=== PATIENT | male | born 1955 | race Caucasian/White ===

== ENCOUNTER 2019-03-10 12:13 | Outpatient (CLI) | payer BC, SELFPAY ==
--- NOTE | 2019-03-10 12:15 | DI.RAD_ITS ---
EXAM: XR HIP RT COMPLETE AP PELVIS INDICATION: pain right hip M25.551. TECHNIQUE: 2D digital imaging was performed. FINDINGS: In the acetabular roof of the right hip, there is subchondral sclerosis, cysts and periarticular spur ring. In the femoral head, there is subchondral sclerosis and cyst formation. No acute fracture or dislocation is identified. The bones are normally mineralized. In the left hip, there has been progression of the subchondral sclerosis and cyst formation since the prior examination from 2016. IMPRESSION: Progressive degenerative changes in both the right and left hip since 2016. While the findings in th e right femoral head may represent degenerative disease, avascular necrosis should also be considered .
[2019-03-10 13:39] LABS: Anion Gap 6.6 mmol/L (3-11); BUN 16 mg/dL (7-18); CO2 30.4 mmol/L (21.0-32.0); CREATININE 1.18 mg/dL (0.70-1.30); Calcium 8.9 mg/dL (8.5-10.1); Calculated LDL 69 mg/dL; Chloride 103 mmol/L (98-107); Cholesterol 137 mg/dL (<200); Glucose 95 mg/dL (74-106); HDL Cholesterol 54 mg/dL (40-60); Potassium 4.7 mmol/L (3.5-5.1); Sodium 140 mmol/L (136-145); Triglyceride 74 mg/dL (<150)
== END 2019-03-10 12:33 ==
PROVIDERS: PCP Family Medicine; Visit Provider Family Medicine
DX: M25.551 Pain in right hip (principal); M16.0 Bilateral primary osteoarthritis of hip; E78.5 Hyperlipidemia, unspecified
CPT/HCPCS: 36415; 80048; 80061; 73502

== ENCOUNTER 2019-05-05 00:53 | Outpatient (CLI) | payer BC, SELFPAY ==
--- NOTE | 2019-05-05 14:10 | DI.RAD_ITS ---
EXAM: RF JOINT INJECTION FLUORO GUID CLINICAL HISTORY: RT HIP PAIN, RT HIP INJECTION,25.559 TECHNIQUE: 2D and realtime digital imaging was performed. Fluoroscopy was provided in the OR COMPARISON: No exams were available for comparison FINDINGS: Fluoroscopy was provided for Dr. Hopkins for guidance with right hip injection. Please see procedur e note for details. Fluoro time: 1.0 seconds
[2019-05-05] MEDS: Omnipaque 300 MG/ML 10 ML BTL IJ (14:25)
[2019-05-05] MEDS: Bupivacaine 0.5% Pres-Free 10 ML VIAL 6 ML IJ (14:26)
[2019-05-05] MEDS: methylPREDNISolone ACETATE 80 MG/ML VIAL IM (14:27)
--- NOTE | 2019-05-05 14:47 | W.PROCNOTE ---
Date of service: 05/05/19 Time of Service: 14:14 Procedure Note Date of procedure: 05/05/19 Procedure: Right Hip Injection with Fluoroscopic Guidance Surgeon/Proceduralist/Physician: Marcel Hopkins Procedure Diagnosis: Right Hip Osteoarthritis Procedure Indications: Shaheed has had persistent pain of the RIGHT hip and groin. Noninvasive measures have been tried. To serve as both diagnostic and therapeutic, an injection under fluoroscopy was recommended. I had discussed the risks of the procedure and the patient elected to proceed. Procedure Description: Shaheed was greeted in the flouroscopy room. The correct side was identified and the consent was reviewed with the patient and signed. The patient was then placed in the supine position on the fluoroscopy table. The RIGHT hip was then prepped with Chloraprep. The anterolateral injection starting point was identiifed by bony landmarks and fluoroscopy. The skin and soft tissue in the tract of the injection was anesthetized with 1% Lidocaine. A spinal needle was then inserted deep into the hip joint at the level of the lateral femoral neck under fluoroscopic guidance. A small amount of Omnipaque solution was injected to confirm intraarticular placement. Once confirmed, the hip was injected with 6cc of 0.5% Bupivicaine and 80mg of Depo-Medrol. A bandaid was placed on the injection site. The patient tolerated the procedure well and noted improvement in pre-injection pain.
== END 2019-05-05 01:13 ==
PROVIDERS: PCP Family Medicine; Visit Provider Student in an Organized Health Care Education/Training Program
DX: M25.551 Pain in right hip (principal); M16.11 Unilateral primary osteoarthritis, right hip
CPT/HCPCS: 20610; 77002; J1040

== ENCOUNTER 2019-11-03 01:30 | Outpatient (CLI) | payer BC, SELFPAY ==
--- NOTE | 2019-11-03 07:15 | DI.RAD_ITS ---
EXAM: RF JOINT INJECTION FLUORO GUID CLINICAL HISTORY: R HIP INJ UNDER FLUORO,PRIMARY OA RT HIP,M16.11 TECHNIQUE: COMPARISON: No exams were available for comparison FINDINGS: Fluoroscopy was utilized by Dr. Hopkins during reported right hip injection. Hard copy shows needle overlying the right hip with intra-articular injection. Fluoro time, 2 seconds. IMPRESSION:
--- NOTE | 2019-11-03 13:54 | W.PROCNOTE ---
Date of service: 11/03/19 Time of Service: 13:54 Procedure Note Date of procedure: 11/03/19 Procedure: Right Hip Injection with Fluoroscopic Guidance Surgeon/Proceduralist/Physician: Marcel Hopkins Procedure Diagnosis: Right Hip Osteoarthritis Procedure Indications: Shaheed has had persistent pain of the RIGHT hip and groin. Noninvasive measures have been tried. To serve as both diagnostic and therapeutic, an injection under fluoroscopy was recommended. I had discussed the risks of the procedure and the patient elected to proceed. Procedure Description: Shaheed was greeted in the flouroscopy room. The correct side was identified and the consent was reviewed with the patient and signed. The patient was then placed in the supine position on the fluoroscopy table. The RIGHT hip was then prepped with Chloraprep. The anterolateral injection starting point was identiifed by bony landmarks and fluoroscopy. The skin and soft tissue in the tract of the injection was anesthetized with 1% Lidocaine. A spinal needle was then inserted deep into the hip joint at the level of the lateral femoral neck under fluoroscopic guidance. A small amount of Omnipaque solution was injected to confirm intraarticular placement. Once confirmed, the hip was injected with 6cc of 0.5% Bupivicaine and 80mg of Depo-Medrol. A bandaid was placed on the injection site. The patient tolerated the procedure well and noted improvement in pre-injection pain.
[2019-11-03] MEDS: Omnipaque 300 MG/ML 10 ML BTL IJ (14:34)
[2019-11-03] MEDS: Bupivacaine 0.5% Pres-Free 10 ML VIAL IJ (14:35)
[2019-11-03] MEDS: methylPREDNISolone ACETATE 80 MG/ML VIAL IM (14:36)
== END 2019-11-03 01:50 ==
PROVIDERS: PCP Family Medicine; Visit Provider Student in an Organized Health Care Education/Training Program
DX: M25.551 Pain in right hip (principal); M16.11 Unilateral primary osteoarthritis, right hip
CPT/HCPCS: 20610; 77002; J1040

== ENCOUNTER 2020-01-17 07:22 | Emergency (ER) | payer BC, SELFPAY ==
[2020-01-17 07:25] VITALS: BP 159/104; PULSE 88; RESP 20; TEMP 36.8; O2SAT 98
[2020-01-17] MEDS: Ondansetron 4 MG/2 ML VIAL IVP (07:35)
--- NOTE | 2020-01-17 07:36 | W.ED.GENAD ---
Discharge Plan Disposition Patient Disposition: HOME Condition: Good Discharge Details Clinical Impression: Diarrhea Primary Care Provider: Nikky Henao ED Provider: Bjorn Ponce Home Meds and New Rx's Prescriptions: Continued fluticasone propionate 50 mcg/actuation spray,suspension 2 spray NS DAILY PRN (Reason: allergy symptoms) RF: 0 triamcinolone acetonide 0.1 % cream 1 applic TP BID Qty: 30 RF: 1 Cortisporin-TC 3.3-3-10-0.5 mg/mL drops,suspension 4 drp OT TID Qty: 10 RF: 0 cholecalciferol (vitamin D3) 50,000 unit capsule 50,000 unit PO weekly Qty: 8 RF: 4 montelukast 10 mg tablet 10 mg PO DAILY Qty: 90 RF: 4 propranolol 120 mg capsule,extended release 24 hr 120 mg PO DAILY Qty: 90 RF: 4 omeprazole 40 mg capsule,delayed release(DR/EC) 40 mg PO DAILY Qty: 90 RF: 3 Discharge Instructions Instructions: Acute Diarrhea (ED) Additional Instructions: Home to rest today. Small, frequent sips of fluids to maintain hydration. May slowly advance a bland diet. Return if you have a fever, bloody diarrhea, or any other acute concerns. Medical Decision Making <Derek Ng, - Last Filed: 01/17/20 07:43> 64-year-old male presents today for evaluation of diarrhea and dry heaving for the last 5 days. Patient states that he took some barbecue and salad and baked beans 5 days ago, after which he has had consistent diarrhea, few episodes of loose watery stools per day. He has had dry heaving but no vomiting. His has similar but more mild symptoms. Aside for occasional cramping with bowel movements he has no other pain in the abdomen. He denies any hematochezia melena or acholic stool. He denies any hematemesis. He is not taken any antidiarrheal medications. He denies any recent antibiotic use, travel, camping, or other risk factors. He denies any history or family history of Crohn's or ulcerative colitis. No other complaints at this time. No other modifying factors. Physical exam demonstrates notably dry mucous membranes, and notably nonsurgical abdomen, the remainder the exam is unremarkable. Vital signs stable. We will gently rehydrate the patient with 1500 cc, check basic labs and electrolytes, check for C. difficile and stool cultures. With no tenderness in the abdomen whatsoever and no clinical evidence of a surgical abdomen whatsoever there is no current indication for further imaging. I do feel that if C. difficile is negative with an otherwise low risk factors historically, the patient can be started on an antidiarrheal agent. Case will be signed out to my colleague Dr. Bjorn Ponce for follow-up on labs and reassessment after rehydration. <Bjorn Ponce MD - Last Filed: 01/17/20 09:48> Medical Records Medical records narrative: Received signout from Dr. Ng. Please see his note regarding details of the initial presentation, exam, plan of care. Patient noted to have mild hyponatremia with sodium 132, hypokalemia with potassium 3.2. BUN and creatinine slightly elevated over baseline. Potassium supplemented in the emergency department. Patient improved and taking both liquids and solids by mouth. He is stable and appropriate for trial of outpatient management. He understands indications to return. His C. difficile PCR was negative. Lab Data Lab results reviewed: Yes I reviewed the patient's lab results. Labs: Laboratory Results - last 24 hr 01/17/20 01/17/20 01/17/20 07:45 07:45 07:45 WBC 7.99 RBC 5.52 Hgb 16.9 Hct 48.4 MCV 87.7 MCH 30.6 MCHC 34.9 RDW 12.5 Plt Count 292 MPV 10.7 Immature Gran % 0.4 Neutrophils % 59.5 Lymphocytes % 17.8 Monocytes % 20.2 Eosinophils % 1.6 Basophils % 0.5 Nucleated RBC % 0 Absolute Neutrophils 4.76 Absolute Lymphocytes 1.42 Absolute Monocytes 1.61 H Absolute Eosinophils 0.13 Absolute Basophils 0.04 RBC Morphology Normal Sodium 132 L Potassium 3.2 L Chloride 94 L Carbon Dioxide 26.3 Anion Gap 11.7 H BUN 19 H Creatinine 1.32 H Estimated GFR/1.73 m2 54.27 Glucose 124 H Calcium 8.8 Magnesium 2.1 Total Bilirubin 0.6 AST 41 H ALT 49 Alkaline Phosphatase 83 Total Protein 7.8 Albumin 3.3 L Lipase 79 HPI <Derek Ng DO - Last Filed: 01/17/20 07:43> General Date/Time Provider Initiated Documentation: 01/17/20 07:29. HPI Narrative: 64-year-old male presents today for evaluation of diarrhea and dry heaving for the last 5 days. Patient states that he took some barbecue and salad and baked beans 5 days ago, after which he has had consistent diarrhea, few episodes of loose watery stools per day. He has had dry heaving but no vomiting. His has similar but more mild symptoms. Aside for occasional cramping with bowel movements he has no other pain in the abdomen. He denies any hematochezia melena or acholic stool. He denies any hematemesis. He is not taken any antidiarrheal medications. He denies any recent antibiotic use, travel, camping, or other risk factors. He denies any history or family history of Crohn's or ulcerative colitis. No other complaints at this time. No other modifying factors. Related Data Home Medications Medication Instructions Recorded Confirmed fluticasone propionate 50 2 spray NS DAILY PRN inh 03/05/18 01/17/20 mcg/actuation nasal spray,suspension triamcinolone acetonide 0.1 % 1 applic TP BID #30 gm 12/28/18 01/17/20 topical cream cholecalciferol (vitamin D3) 1,250 50,000 unit PO weekly #8 cap 01/05/19 01/17/20 mcg (50,000 unit) capsule ofeeaiyy-vpaqpc-PQ-thonzonm 3.3 4 drp OT TID #10 ml 01/27/19 01/17/20 mg-3 mg-10 mg-0.5 mg/mL ear drops,susp montelukast 10 mg tablet 10 mg PO DAILY #90 tab-cap 07/11/19 01/17/20 propranolol 120 mg capsule,24 120 mg PO DAILY #90 tab-cap 07/11/19 01/17/20 hr,extended release omeprazole 40 mg capsule,delayed 40 mg PO DAILY #90 tab-cap 07/12/19 01/17/20 release Previous Rx's Medication Instructions Recorded triamcinolone acetonide 0.1 % 1 applic TP BID #30 gm 12/28/18 topical cream cholecalciferol (vitamin D3) 1,250 50,000 unit PO weekly #8 cap 01/05/19 mcg (50,000 unit) capsule tphvicry-kgcecu-FH-thonzonm 3.3 4 drp OT TID #10 ml 01/27/19 mg-3 mg-10 mg-0.5 mg/mL ear drops,susp montelukast 10 mg tablet 10 mg PO DAILY #90 tab-cap 07/11/19 propranolol 120 mg capsule,24 120 mg PO DAILY #90 tab-cap 07/11/19 hr,extended release omeprazole 40 mg capsule,delayed 40 mg PO DAILY #90 tab-cap 07/12/19 release Allergies Allergy/AdvReac Type Severity Reaction Status Date / Time aspirin Allergy Severe SWELLING Unverified 04/04/19 13:56 NSAIDS (Non-Steroidal Allergy Severe SWELLING Unverified 04/04/19 13:56 Anti-Inflamma General Stated Complaint: Nausea/Vomit/Diar KORI: 3 Review of Systems <Derek Ng DO - Last Filed: 01/17/20 07:43> All systems reviewed & are unremarkable except as noted in HPI and below PFSH <Derek Ng DO - Last Filed: 01/17/20 07:43> Medical History (Updated 01/17/20 @ 07:41 by Derek Ng DO) Impacted cerumen of both ears Nasal polyp Otitis externa Family History Mother Skin cancer Father Skin cancer Sister Cancer Brother No problems noted. Brother No problems noted. Social History Smoking/Tobacco Use Status: Former Tobacco Use Quit Date: 04/20/06 Tobacco: How many years used: 30 Second Hand Exposure: No Alcohol Intake: current Alcohol Intake frequency: a few times a month Alcohol type: beer Drug use: Occasionally Substance use type: marijuana Caregiver/Support person: No Household members: spouse Housing: house Communication Needs: None Do you need help understanding health information?: Rarely Pets and animals: Yes Pets and animals: cat(s) Sexually active: Yes Do you think of yourself as: straight/heterosexual Current gender identity: male What is your relationship status?: How often do you talk on the phone with friends or family?: twice per week How often do you get together with friends or relatives?: once per week How often do you attend hinduism or cheondoism services?: decline to answer Do you belong to any clubs or organized social groups?: no Panel score (0-1 are the most socially isolated patients): 2 What type of physical activity do you participate in: bicycling Duration: < 15 minutes/day Frequency: 5-6 times per week Jackelyn/Latter-Day: None Special jackelyn needs: No Seatbelt use: always Drive intox or ride w/intox utility 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 3.ENT: Atraumatic external nose and ears. Notably dry MM. Neck: Symmetric, trachea midline, No thyromegaly. 4.CVS: +S1/S2, No murmurs or gallops. Peripheral pulses 2+ and equal in all extremities. Brisk capillary refill in all extremities. 5.RESP: Unlabored respiratory effort. Clear to auscultation bilaterally. No wheezes rales or rhonchi 6.GI: Soft, Nontender/Nondistended, No hepatosplenomegaly. No guarding or rebound. No pain at McBurney's point, negative Stafford sign. Bowel sounds present. No genital tenderness. 7.MSK: Normocephalic/Atraumatic, Extremities w/o deformity or ttp No cyanosis or clubbing, Normal movement of all extremities 8.Skin: Warm, Dry. No rashes or lesions. 9.Neuro: leg breaker II-XII grossly intact. Sensation grossly intact, no focal neurologic deficits. 10.Psych: (AAO) x3. Appropriate mood and affect Course <Derek Ng DO - Last Filed: 01/17/20 07:43> Vital Signs Vital signs: Vital Signs Temperature 36.8 C 01/17/20 07:25 Pulse 88 01/17/20 07:25 Respiratory Rate 20 01/17/20 07:25 Blood Pressure 159/104 H 01/17/20 07:25 Pulse Oximetry 98 01/17/20 07:25 Temperature 36.8 C 01/17/20 07:25 Temperature Source Temporal Artery Scan 01/17/20 07:25 Pulse 88 01/17/20 07:25 Respiratory Rate 20 01/17/20 07:25 Respiratory Effort 01/17/20 07:29 Blood Pressure 159/104 H 01/17/20 07:25 Pulse Oximetry 98 01/17/20 07:25 Oxygen Delivery Method Room Air 01/17/20 07:25 Oxygen Flow Rate 0 01/17/20 07:25 Pain Level 0 01/17/20 07:29 Sign Out <Derek Ng DO - Last Filed: 01/17/20 07:43> Sign Out Data: Sign Out Comment: Diarrhea for the last 5 days. Rehydrating with 1500 cc. Follow-up on labs and C. difficile. Last updated by Derek Ng DO at 01/17/20 07:43
[2020-01-17] MEDS: Normal Saline 1,000 ML 1000 ML IV (07:48)
[2020-01-17 07:54] LABS: Abs Immature Grans 0.03 10^3/uL (0.0-0.06); Absolute Basophil Count 0.04 10^3/uL (0.0-0.2); Absolute Eosinophil Count 0.13 10^3/uL (0.0-0.7); Absolute Lymphocyte Count 1.42 10^3/uL (1.2-3.4); Absolute Monocyte Count 1.61 10^3/uL (0.1-0.8); Absolute Neutrophil Count 4.76 10^3/uL (1.2-6.7); Basophils % 0.5; Eosinophils % 1.6; HCT 48.4 % (40.0-50.0); HGB 16.9 g/dL (13.5-17.5); Immature Grans % 0.4; Lymphocytes % 17.8; MCH 30.6 pg (27.0-33.0); MCHC 34.9 % (32.0-36.0); MCV 87.7 fL (80-95); MPV 10.7 fL (8.0-11.0); Monocytes % 20.2; Neutrophils % 59.5; Nucleated RBC 0 %; Platelet Count 292 10^3/uL (130-400); RBC 5.52 10^6/uL (4.36-5.78); RDW 12.5 % (11.8-14.1); RDW-SD 40.2 fL; WBC 7.99 10^3/uL (4.4-10.8)
[2020-01-17 08:03] LABS: Magnesium 2.1 mg/dL (1.8-2.4)
[2020-01-17 08:09] LABS: ALT 49 U/L (16-63); AST 41 U/L (15-37); Albumin 3.3 g/dL (3.4-5.0); Alkaline Phosphatase 83 U/L (46-116); Anion Gap 11.7 mmol/L (3-11); BUN 19 mg/dL (7-18); CO2 26.3 mmol/L (21.0-32.0); CREATININE 1.32 mg/dL (0.70-1.30); Calcium 8.8 mg/dL (8.5-10.1); Chloride 94 mmol/L (98-107); Estimated GFR 54.27 (mL/min/1.73m2); Glucose 124 mg/dL (74-106); Lipase 79 U/L (73-393); Potassium 3.2 mmol/L (3.5-5.1); Sodium 132 mmol/L (136-145); Total Protein 7.8 g/dL (6.4-8.2)
[2020-01-17 08:10] LABS: Bilirubin, Total 0.6 mg/dL (0.2-1.0)
[2020-01-17 08:16] LABS: Diff Comment Diff Reviewed; RBC Morphology Normal
[2020-01-17 08:24] VITALS: BP 154/86; PULSE 70; O2SAT 98
[2020-01-17] MEDS: POTASSIUM CHLORIDE 10 MEQ/100 ML BAG 100 MEQ IVPB (08:30)
[2020-01-17 08:33] VITALS: BP 154/86; PULSE 76; RESP 18; O2SAT 97
[2020-01-17] MEDS: Normal Saline 500 ML IV (08:41)
[2020-01-17 09:23] LABS: C Diff PCR Negative (Negative)
[2020-01-17 09:26] VITALS: BP 157/87; PULSE 79; RESP 18; O2SAT 96
== END 2020-01-17 09:56 | disposition home or self-care (01) ==
PROVIDERS: Student in an Organized Health Care Education/Training Program; Emergency Provider Emergency Medicine; PCP Nurse Practitioner
DX: R19.7 Diarrhea, unspecified (principal); E86.0 Dehydration; E87.6 Hypokalemia; E87.1 Hypo-osmolality and hyponatremia
CPT/HCPCS: 36415; 80053; 83690; 87329; 87493; 87505; 96361; 96365; 96375; 99284; 83735; 85025; 87324; J2405; J3480

== ENCOUNTER 2020-04-06 19:34 | Outpatient (REF) | payer BC, SELFPAY ==
[2020-04-09 14:33] LABS: Campylobacter PCR Negative (Negative); Salmonella PCR Negative (Negative); Shiga Toxin PCR Negative (Negative); Shigella/Enteroinvasive Ecoli Negative (Negative)
== END 2020-04-06 19:54 ==
LOC: LBN 19:34
PROVIDERS: PCP Nurse Practitioner; Visit Provider Nurse Practitioner
DX: A04.5 Campylobacter enteritis (principal)
CPT/HCPCS: 87505

== ENCOUNTER 2020-10-18 10:42 | Outpatient (CLI) | payer BC, SELFPAY ==
--- NOTE | 2020-10-18 09:15 | DI.RAD_ITS ---
Exam(s) XR HIP PELVIS ADULT BL EXAM: XR HIP PELVIS ADULT BL CLINICAL HISTORY: BILAT HIP PAIN. TECHNIQUE: 2D digital imaging was performed. CR XR HIP RT COMPLETE AP PELVIS from 03/10/2019 FINDINGS: There are no hip fractures. However, there findings in both femoral heads consistent with avascular necrosis, similar to previous. There is no loss of the femoral head architecture on either side. Th ere is no prominent narrowing of the hip joint spaces. On the right side there is a 1.8 by 1.2 cm calcific density adjacent to the upper aspect of the great er trochanter, unchanged. Also unchanged from images of February 2016. IMPRESSION: Bilateral avascular necrosis of the femoral heads. No flat of the femoral heads evident at this time . DATA REPOSITORY: RADIATION DOSE DELIVERED:
== END 2020-10-18 10:43 | disposition home or self-care (01) ==
LOC: DIORS 10:43
PROVIDERS: PCP Nurse Practitioner; Referring Provider Nurse Practitioner; Visit Provider Student in an Organized Health Care Education/Training Program
DX: M87.052 Idiopathic aseptic necrosis of left femur (principal); M87.051 Idiopathic aseptic necrosis of right femur; M16.0 Bilateral primary osteoarthritis of hip
CPT/HCPCS: 73521

== ENCOUNTER 2020-11-05 02:52 | Outpatient (CLI) | payer BC, SELFPAY ==
[2020-11-05 11:27] LABS: Source Nasal/Nares
[2020-11-05 14:20] LABS: COVID-19 PCR Negative (Negative)
== END 2020-11-05 02:53 | disposition home or self-care (01) ==
LOC: LBO 02:52
PROVIDERS: PCP Nurse Practitioner; Visit Provider Student in an Organized Health Care Education/Training Program
DX: Z20.822 Contact with and (suspected) exposure to COVID-19 (principal); Z01.818 Encounter for other preprocedural examination
CPT/HCPCS: 87635

== ENCOUNTER 2020-11-05 03:39 | Outpatient (CLI) | payer BC, SELFPAY ==
[2020-11-05 10:37] LABS: Abs Immature Grans 0.02 10^3/uL (0.0-0.06); Absolute Basophil Count 0.07 10^3/uL (0.0-0.2); Absolute Eosinophil Count 0.62 10^3/uL (0.0-0.7); Absolute Lymphocyte Count 1.82 10^3/uL (1.2-3.4); Absolute Monocyte Count 0.64 10^3/uL (0.1-0.8); Absolute Neutrophil Count 4.17 10^3/uL (1.2-6.7); Eosinophils % 8.4; HCT 43.6 % (40.0-50.0); HGB 14.6 g/dL (13.5-17.5); Immature Grans % 0.3; Lymphocytes % 24.8; MCH 30.2 pg (27.0-33.0); MCHC 33.5 % (32.0-36.0); MCV 90.3 fL (80-95); MPV 11.3 fL (8.0-11.0); Monocytes % 8.7; Neutrophils % 56.8; Nucleated RBC 0 %; Platelet Count 215 10^3/uL (130-400); RBC 4.83 10^6/uL (4.36-5.78); RDW 13.1 % (11.8-14.1); RDW-SD 43.5 fL; WBC 7.34 10^3/uL (4.4-10.8)
[2020-11-05 11:21] LABS: ALT 26 U/L (16-63); AST 20 U/L (15-37); Albumin 3.8 g/dL (3.4-5.0); Alkaline Phosphatase 82 U/L (46-116); BUN 19 mg/dL (7-18); Bilirubin, Total 0.4 mg/dL (0.2-1.0); CREATININE 1.1 mg/dL (0.70-1.30); Calcium 8.9 mg/dL (8.5-10.1); Chloride 104 mmol/L (98-107); Glucose 104 mg/dL (74-106); Magnesium 1.9 mg/dL (1.8-2.4); Potassium 4.6 mmol/L (3.5-5.1); Sodium 141 mmol/L (136-145); Total Protein 6.9 g/dL (6.4-8.2)
[2020-11-05 11:24] LABS: Anion Gap 8.7 mmol/L (3-11); CO2 28.3 mmol/L (21.0-32.0)
== END 2020-11-05 03:40 | disposition home or self-care (01) ==
LOC: LBO 03:39
PROVIDERS: Physician Assistant; PCP Nurse Practitioner; Visit Provider Student in an Organized Health Care Education/Training Program
DX: M25.551 Pain in right hip (principal); M25.552 Pain in left hip; M16.0 Bilateral primary osteoarthritis of hip; E86.0 Dehydration; R19.7 Diarrhea, unspecified; Z01.818 Encounter for other preprocedural examination; Z01.812 Encounter for preprocedural laboratory examination
CPT/HCPCS: 36415; 80053; 85027; 86850; 86900; 86901; 83735; 85025

== ENCOUNTER 2020-11-06 05:59 | Inpatient (IN) | payer BC, SELFPAY ==
--- NOTE | 2020-11-05 11:54 | NUR.NOTE ---
Addendum entered by Juan Coles 11/05/20 12:09: Sandeep's office messaged this RN via teams to now HOLD Celebrex. Medication will be held and pharmacy made aware. Addendum entered by Juan Coles 11/05/20 12:05: Anesthesia group made aware of this as well. Original Note: (Sandeep) informed of patient's allergy to NSAIDS and aspirin with a severe allergic reaction of facial and throat swelling. This was confirmed by this RN with patient. informed of allergy in regards to patients pre-operative meds of specifically Celebrex. informed via teams instant messenger, if he would like to HOLD Celebrex, (no response)-- also phone call made to office, ([facility] legal secretary) to ask MD. Per [facility] from would like to continue with Celebrex and not hold it regardless of allergy. This was also verified with Tyesha Miller, in pharmacy to proceed with override of Physician aware, administer with monitoring Nursing Note:
[2020-11-06] VITALS (10 sets, daily range): BP systolic 101–138; BP diastolic 57–80; PULSE 38–53; RESP 15–20; TEMP 36.1–36.7; O2SAT 97–100; BMI 32.1
[2020-11-06] MEDS: Lactated Ringers 1,000 ML 80 ML IV ×2 (07:00→16:20)
--- NOTE | 2020-11-06 07:13 | W.ANESPRE ---
General Info Date of Service Date Performed: 11/06/20 Height: 5 ft 8 in Weight: 96 kg Body Mass Index (BMI): 32.1 Surgical Procedure: Operation Date: 11/06/20 08:15 Proposed Procedures Side Surgeon p Hip Total Hip Anterior Bilateral Bilateral Marcel Hopkins MD Meds Allergies and Home Medications Allergies Allergy/AdvReac Type Severity Reaction Status Date / Time aspirin Allergy Severe SWELLING Verified 11/06/20 06:12 NSAIDS (Non-Steroidal Allergy Severe SWELLING Verified 11/06/20 06:12 Anti-Inflamma Home Medication Medication Instructions Recorded fluticasone propionate 50 2 spray NS DAILY PRN inh 03/05/18 mcg/actuation nasal spray,suspension cholecalciferol (vitamin D3) 1,250 50,000 unit PO weekly #8 cap 03/14/20 mcg (50,000 unit) capsule montelukast 10 mg tablet 10 mg PO DAILY #90 tab-cap 08/16/20 propranolol 120 mg capsule,24 120 mg PO DAILY #90 tab-cap 08/16/20 hr,extended release omeprazole 40 mg capsule,delayed 40 mg PO DAILY #90 tab-cap 10/02/20 release chlorhexidine gluconate 0.12 % 15 ml MUCOUS MEMBRANE DAILY 10/19/20 mouthwash Current Visit Medications: Current Medications Generic Name Dose Route Start Last Admin Trade Name Freq PRN Reason Stop Dose Admin Acetaminophen 1,000 mg 11/06/20 06:00 Acetaminophen 500 Mg Tab PO 11/06/20 16:00 PREOP STEVEN Tranexamic Acid 1,000 mg/ 60 mls @ 360 mls/hr 11/06/20 06:00 Sodium Chloride IV 11/06/20 16:00 PREOP STEVEN Tranexamic Acid 1,000 mg/ 60 mls @ 360 mls/hr 11/06/20 06:00 Sodium Chloride IV 11/06/20 16:00 DIRECTED STEVEN Ringer's Solution 1,000 mls @ 80 mls/hr 11/06/20 06:00 11/06/20 07:00 IV 12/05/20 23:59 80 mls/hr INFUSION STEVEN Administration Cefazolin Sodium/Dextrose 2 gm in 50 mls @ 100 mls/hr 11/06/20 06:00 Ancef Duplex IVPB 11/06/20 23:59 PREOP STEVEN IV Miscellaneous Supplies 1 each 11/06/20 06:00 Iv Access IV 12/05/20 23:59 DIRECTED STEVEN Sodium Chloride 0 ml 11/06/20 06:00 Normal Saline Flush 10 Ml Syr IV 12/05/20 23:59 PRN PRN Sodium Chloride 0 ml 11/06/20 06:00 Normal Saline 10 Ml Vial IJ 12/05/20 23:59 DIRECTED PRN Sterile Water 0 ml 11/06/20 06:00 Water,Injection,Sterile 10 Ml Vial IJ 12/05/20 23:59 DIRECTED PRN PFSH Active Problems Active Problems: Problem Status Onset Code Primary osteoarthritis of left hip M16.12 Primary osteoarthritis of right hip M16.11 Pruritus ani 02/01/15 L29.0 Migraine G43.909 Conductive hearing loss, external ear 11/23/14 H90.2 Chronic sinusitis 11/24/13 J32.9 Allergic rhinitis 11/29/15 J30.9 Medical History Medical History Impacted cerumen of both ears Nasal polyp Otitis externa Surgical History Surgical History History of nasal polyp (11/29/15) Status post colonoscopy Tobacco Smoking/Tobacco Use Status: Former Tobacco Use Tobacco: How many years used: 30 Alcohol Alcohol Intake: current Alcohol intake frequency: 0-2 drinks per day Alcohol type: beer Substance Use Substance use: Occasionally Substance use type: marijuana Vital Signs and Lab Results Vital Signs Most Recent Vital Signs in EMR: Most Recent Vital Signs Temp Pulse Resp BP Pulse Ox 36.7 C 53 L 18 138/71 98 11/06/20 06:16 11/06/20 06:16 11/06/20 06:16 11/06/20 06:16 11/06/20 06:16 Lab Results Blood Type / Crossmatch: Patient ABO/Rh O Positive 11/05/20 10:25 11/05/20 Antibody Screen NEGATIVE 11/05/20 10:25 11/05/20 Complete Blood Count: White Blood Count 7.34 10^3/uL (4.4-10.8) 11/05/20 10:25 11/05/20 Red Blood Count 4.83 10^6/uL (4.36-5.78) 11/05/20 10:11/05/20 Hemoglobin 14.6 g/dL (13.5-17.5) 11/05/20 10:11/05/20 Hematocrit 43.6 % (40.0-50.0) 11/05/20 10:11/05/20 Platelet Count 215 10^3/uL (130-400) 11/05/20 10:11/05/20 Complete Metabolic Panel: Sodium Level 141 mmol/L (136-145) 11/05/20 10:11/05/20 Potassium Level 4.6 mmol/L (3.5-5.1) 11/05/20 10:11/05/20 Chloride Level 104 mmol/L (98-107) 11/05/20 10:11/05/20 Carbon Dioxide Level 28.3 mmol/L (21.0-32.0) 11/05/20 10:11/05/20 Blood Urea Nitrogen 19 mg/dL (7-18) H 11/05/20 10:11/05/20 Creatinine 1.1 mg/dL (0.70-1.30) 11/05/20 10:11/05/20 Estimated GFR/1.73 m2 >= 60.00 (mL/min/1.73m2) 11/05/20 10:11/05/20 Magnesium Level 1.9 mg/dL (1.8-2.4) 11/05/20 10:11/05/20 Calcium Level 8.9 mg/dL (8.5-10.1) 11/05/20 10:11/05/20 Albumin 3.8 g/dL (3.4-5.0) 11/05/20 10:11/05/20 Glucose Level 104 mg/dL (74-106) 11/05/20 10:11/05/20 Liver Function Panel: Alanine Aminotransferase (ALT/SGPT) 26 U/L (16-63) 11/05/20 10:11/05/20 Aspartate Amino Transf (AST/SGOT) 20 U/L (15-37) 11/05/20 10:11/05/20 Coagulation Panel: No Data to Display Cardiac Panel: No Data to Display Arterial Blood Gas: No Data to Display Venous Blood Gas: No Data to Display Pancreas Panel: No Data to Display Thyroid Panel: No Data to Display Infectious Disease: Coronavirus (COVID-19)(PCR) Negative (Negative) 11/05/20 10:34 11/05/20 Coronavirus 2019 Source Nasal/Nares 11/05/20 10:34 11/05/20 Blood Cultures: No Data to Display Toxicology Panel: No Data to Display Anesthesia Assessment and Plan Anesthesia History Personal History: No History of Anesthesia Complications Family History: No Family History of Anesthesia Complications Exercise Tolerance Exercise Tolerance: Metabolic Equivalents>4 Pertinent Negatives Pertinent Negatives: No Symptoms of GERD, No Major Cardiovascular Symptoms or Complaints, No Major Pulmonary Symptoms or Complaints and No History of CVA/TIA Cardiac & Pulmonary Exam Cardiac Exam: Normal S1/S2 Heart Sounds Pulmonary Exam: Clear Bilateral Breath Sounds Airway Exam Known Difficult Airway: No Mallampati Class: 2 Mouth Opening: Narrow (< 3cm) Thyromental Distance: Greater than 3 cm Neck Range of Motion: Full ROM Neck Circumference: Normal Teeth Condition: Normal Dentition ASA Classification ASA Score: ASA 2 Emergency Case?: No NPO Status NPO Status: NPO Clears >2 hours, Solids >8 hours Anesthesia Plan Resuscitation Status: Full Code Anesthesia Technique: Spinal Anesthesia Airway Planned: Natural Airway Monitors Used: Standard Monitors
--- NOTE | 2020-11-06 07:15 | DI.RAD_ITS ---
Exam(s) XR HIP LT IN OR EXAM: XR HIP LT IN OR CLINICAL HISTORY: OSTEOARTHRITIS LEFT HIP. TECHNIQUE: 2D and realtime digital imaging was performed. COMPARISON: No exams were available for comparison FINDINGS: Fluoroscopy was provided in the OR. Hard copy images show placement of a left hip prosthesis. The a lignment appears satisfactory. Please see procedure note for details. Fluoro time 40.2 seconds RADIATION DOSE DELIVERED: Ka,r=6.16 mGy
--- NOTE | 2020-11-06 07:15 | DI.RAD_ITS ---
Exam(s) XR HIP RT IN OR EXAM: XR HIP RT IN OR CLINICAL HISTORY: OSTEOARTHRITIS RIGHT HIP. TECHNIQUE: 2D and realtime digital imaging was performed. COMPARISON: CR XR HIP PELVIS ADULT BL from 10/18/2020 CR XR HIP PELVIS ADULT BL from 10/18/2020 FINDINGS: Fluoroscopy was provided in the OR. Hard copy image shows placement of a right hip prosthesis. The components show satisfactory alignment. Please see procedure note for details. Fluoro time 44.5 seconds RADIATION DOSE DELIVERED: eric Alejo=6.44 mGy
[2020-11-06] MEDS: Acetaminophen 500 MG TAB 1000 MG PO ×3 (07:38→19:52)
[2020-11-06] MEDS: ceFAZolin 2 GM/50 ML BAG IVPB (08:07)
[2020-11-06] MEDS: Bupivacaine 0.25% Pres-Free 30 ML VIAL (09:02)
[2020-11-06] MEDS: Ketorolac 30 MG/ML VIAL (09:02)
--- NOTE | 2020-11-06 10:51 | ROE_ITS ---
Date of service: 11/06/20 Time of Service: 10:51 Operative Note Operative Note DATE OF PROCEDURE: 11/06/20 PRE-OP DIAGNOSIS: Bilateral Hip Osteoarthritis POST-OP DIAGNOSIS: same PROCEDURE: Bilateral Anterior Total Hip Arthroplasty with Intraoperative Navigation SURGEON: Marcel Hopkins PICTURE HANGER: Susan Walters Refer to Anesthesia Record ESTIMATED BLOOD LOSS: 300 PATHOLOGY: none sent COMPLICATIONS: None Patient was transported to: PACU Patient's condition: stable Implants: RIGHT: 1. Depuy Hereford Acetabular Component, 54mm 2. Depuy Acetabular Liner, [id number] 3. Depuy Corail Standard Collared Femoral Stem, Size 12 4. Depuy Altrx Ceramic Femoral Head, Size 36+5mm LEFT: 1. Depuy He[place]ord Acetabular Component, 54mm 2. Depuy Acetabular Liner, [id number] 3. Depuy Corail Standard Collared Femoral Stem, Size 12 4. Depuy Altrx Ceramic Femoral Head, Size 36+8.5mm Indications: I have seen Shaheed in clinic for symptoms of bilateral hip arthritis, confirmed with radiographic findings. Shaheed has exhausted nonoperative methods and was having significant limitations in daily function and desired better function and less pain. I discussed the technical details of a hip replacement. I explained the risks of the procedure to include, but not limited to, bleeding, infection, pain, stiffness, fracture, damage to nerves and vessels, damage to muscles and tendons, loosening, instability, leg length inequality, need for repeat procedure, blood clot and cardiopulmonary demise. Despite these risks, he elected to proceed. Findings: There was significant signs of arthritis throughout both hips. This was mostly on the femoral heads and neck with some superolateral osteophytes of the acetabulum. Procedure Description: Shaheed was greeted in the preoperative holding area where the correct side was identified and marked. The consent was reviewed with the patient and signed. The history and physical was updated. All questions were answered. He was taken back to the operating room. A spinal anesthestic was then administered. The patient was placed into the supine position on the operating room table. Both feet were wrapped with Webrill cotton wrap along with Coban. The HANA boots were applied and he was positioned onto the HANA table against the perineal post. SCDs were applied. Both legs were kept in a neutral position. RIGHT Side A preoperative AP pelvis was obtained to serve as a reference for determining leg lengths. Prophylactic antibiotics in the form of Cefazolin were administered. 1g of Tranxemic Acid was given intravenously within 30 minutes of incision. The right leg was then prepped with Chloraprep and draped in a standard fashion. A second prep with Chloraprep was performed prior to placement of a shower-curtain type drape with Iodine impregnated skin protection. A timeout to confirm correct identity, side and site, procedure, allergies, anesthesia, and medical concerns was performed. An obliquely oriented incision was made starting lateral to the ASIS and running distal over the Tensor Fascia Rosie (TFL) muscle belly toward the fibular head, approximately 10cm. The skin and soft tissue was dissected sharply, through Jonathan?s fascia, and to the fascia of the TFL. With the fascia and superior border of the IT band identified, the fascia was incised with a new knife just above any perforators from the IT band. The TFL muscle belly was bluntly dissected away from the fascia and moved laterally. The fat between TFL and rectus was identified to ensure the dissection was not within the TFL. Blunt dissection created space between abductors and the capsule and retractor was placed over the lateral femoral neck. The fibers of the rectus femoris tendon were identified and these were freed from the anterior capsule. A second cobra retractor was placed around the medial femoral neck. The TFL was further retracted laterally to show the deep fascia. Careful dissection through this layer identified three main crossing vessels of the lateral femoral circumflex. These were cauterized in multiple locations and then cut without any noticeable bleeding. The TFL was further released bluntly from the deep fascia to expose anterior hip capsule and fat The Giorgio orthopaedic retractor was then placed beneath the TFL and against sartorius and medial soft tissues to protect and retract the soft tissues. A T-capsulotomy was then performed starting at the superior lateral acetabulum and moving distally to the intertrochanteric ridge. These capsular flaps were tagged with a No. 1 Ethibond and elevated from within. The capsular flaps were released to the shoulder of the lateral neck and to the lesser trochanter to give excellent visualization of the proximal femur. A neck osteotomy was performed using an oscillating saw based on preoperative templates. This cut started in the shoulder and of the lateral neck and exited medially. The saw was at all times directed medially to avoid injury to the greater trochanter. 6cm of traction was applied to the leg and the osteotomy opened. The femoral head was removed with a corkscrew, making sure to protect the TFL on its exit. This was measured on the back table to determing the starting reamer size. Portions of the rectus obscuring visualization were minimally elevated off the superior acetabulum. An anterior retractor was placed over the anterior wall between capsule and labrum and attached to the Gripper retraction system. A posterior retractor was placed similarly. This provided excellent visualization. The contents of the cotyloid fossa were removed with electrocautery and the labrum was removed with a knife. There was some osteophytes of the superolateral acetabulum. Acetabular reaming began with a 52mm reamer. For the reaming portion of the case the anterior retractor was removed. This first reaming was directed anterior to posterior and medial to get down to the true floor. This was inspected and reamed until the true floor was reached. The anterior retractor was then released and entry and exit was provided by traction on the capsular flaps. I then reamed sequentially up to a 54mm reamer where good fit was obtained. The larger reamers were oriented based on anatomical reference of the anterior and lateral barajas to ensure proper abduction and anteversion. Positioning and size was confirmed with the fluoroscopy. A 54mm Depuy Hereford acetabular component was selected. The acetabulum was reamed around the periphery with the selected acetabular size to prevent a rim fit. The deep tissues were irrigated. The acetabular component was then impacted in a position of about 40-45 degrees of abduction and 15-20 degrees of anteversion, using the patient?s anatomy as the ultimate landmark. Fluoroscopy was used to confirm this. There was excellent vacuum tester cans of the acetabular component and the inserting handle was removed. The acetabular liner, Depuy [id number] polyethylene liner, was inserted and lined up with the tines of the acetabular component. There was no soft tissue interposition. The liner was then impacted into position and confirmed to be well-seated. A portion of the tawny-articular cocktail was then injected around the acetabulum into the capsule and periosteum. This cocktail consisted of 50cc of 0.25% Bupivicaine and 20cc of Exparel, expanded to a total of 120cc. Traction was released from the femur. The leg was rotated to 110 degrees. Any remaining medial capsule was released until the lesser trochanter was easily palpable. A Montaño retractor was placed medially. The lateral capsule was further released into the shoulder to allow access to the greater trochanter. A Montaño retractor was placed over the greater trochanter which allowed the trochanter to flip in front of the capsule for excellent exposure. The leg was brought down into maximal extension and 20 degrees of adduction while ensuring there was no impingement on the acetabulum. Any remnant capsule within the trochanter was released. Piriformis and obturator externis were identified and protected. There was excellent access to the proximal femur. The lateral neck remnant was removed with a rongeur. A blunt canal probe was used to identify the canal and trajectory for later broaching. A box osteotome initiated the broach course. A small curved rasp and a curved curette were used to work laterally. Broaching then began with a size 8 Corail broach. This was inserted manually around the trochanter and into the canal before mallet blows. The broach was seated to a few millimeters below the cut level based on the neck cut and the preoperative template. Sequential broaching was continued with the Dealstruck pneumatic broaching device until a tigh t fit was obtained with good rotational control of the femur. A trial standard neck was inserted along with a +1.5 trial head. The leg was brought out of extension and adduction and then reduced with traction and internal rotation. The leg was stable anteriorly in a position of 30 degrees of extension and 90 degrees of external rotation. Fluoroscopy was used to ensure there was no fracture and the stem was seated well. Leg lengths were checked with an AP pelvis and pelvic reference points. [employer] navigation system was used to confirm appropriate positioning and leg length and offset. To gain appropriate reconstitution of the leg length and offset, a +5 head would provide the best correct. Once content with the desired offset and leg lengths, the leg was brought back into extension, external rotation and adduction. The periosteum and surrounding tissue was injected with remaining portion of the tawny-articular cocktail. The proximal femur was irrigated as well as the deep tissues. The Depuy Corail standard collared stem, size 12, was then manually inserted into the proximal femur making sure to control rotation. It was then malleted into position with light blows, giving breaks to allow bone expansion and decrease risk of fracture. The selected Depuy Altrx Ceramic Head, size 36+5mm, was then placed onto the clean and dry trunnion and secured with impaction onto the tapered fit. The leg was brought back out of extension and adduction and reduced with traction and internal rotation. Stability was confirmed with no shuck at 90 degrees of external rotation and 30 degrees of extension. No impingement through range of motion arc. Final x-ray images were obtained with fluoroscopy to confirm adequate positioning and no intraoperative fracture. The deep tissues were thoroughly irrigated with Irrisept chlorhexadine solution. The second dose of TXA 1g was administered intravenously.The capsule was then reapproximated with the previously placed Ethibond sutures. The TFL fascia was finally closed with a No. 2 Stratafix, barbed suture. Deep tissues were then reapproximated with 0 Vicryl and a running 2-0 Vicryl. The skin was closed with a running 4-0 Monocryl in a subcuticular fashion. This was reinforced with skin glue. A Mepilex silver dressing was applied. LEFT Side Keeping the back table sterile, the drapes were removed, light handles changed, and fluoroscopy switched rooms sides. At this point, he was stable from an anesthetic perspective and there were no concerns with proceeding to the left side. A preoperative AP pelvis was obtained to serve as a reference for determining leg lengths. The left leg was then prepped with Chloraprep and draped in a standard fashion. A second prep with Chloraprep was performed prior to placement of a shower-curtain type drape with Iodine impregnated skin protection. A timeout was once again performed to ensure that there were no issues to proceed. An obliquely oriented incision was made starting lateral to the ASIS and running distal over the Tensor Fascia Rosie (TFL) muscle belly toward the fibular head, approximately 10cm. The skin and soft tissue was dissected sharply, through Jonathan?s fascia, and to the fascia of the TFL. With the fascia and superior border of the IT band identified, the fascia was incised with a new knife just above any perforators from the IT band. The TFL muscle belly was bluntly dissected away from the fascia and moved laterally. The fat between TFL and rectus was identified to ensure the dissection was not within the TFL. Blunt dissection created space between abductors and the capsule and retractor was placed over the lateral femoral neck. The fibers of the rectus femoris tendon were identified and these were freed from the anterior capsule. A second cobra retractor was placed around the medial femoral neck. The TFL was further retracted laterally to show the deep fascia. Careful dissection through this layer identified three main crossing vessels of the lateral femoral circumflex. These were cauterized in multiple locations and then cut without any noticeable bleeding. The TFL was further released bluntly from the deep fascia to expose anterior hip capsule and fat The Giorgio orthopaedic retractor was then placed beneath the TFL and against sartorius and medial soft tissues to protect and retract the soft tissues. A T-capsulotomy was then performed starting at the superior lateral acetabulum and moving distally to the intertrochanteric ridge. These capsular flaps were tagged with a No. 1 Ethibond and elevated from within. The capsular flaps were released to the shoulder of the lateral neck and to the lesser trochanter to give excellent visualization of the proximal femur. A neck osteotomy was performed using an oscillating saw based on preoperative templates. This cut started in the shoulder and of the lateral neck and exited medially. The saw was at all times directed medially to avoid injury to the greater trochanter. 6cm of traction was applied to the leg and the osteotomy opened. The femoral head was removed with a corkscrew, making sure to protect the TFL on its exit. This was measured on the back table to determing the starting reamer size. Portions of the rectus obscuring visualization were minimally elevated off the superior acetabulum. An anterior retractor was placed over the anterior wall between capsule and labrum and attached to the Gripper retraction system. A posterior retractor was placed similarly. This provided excellent visualization. The contents of the cotyloid fossa were removed with electrocautery and the labrum was removed with a knife. Acetabular reaming began with a 52mm reamer. For the reaming portion of the case the anterior retractor was removed. This first reaming was directed anterior to posterior and medial to get down to the true floor. This was inspected and reamed until the true floor was reached. The anterior retractor was then released and entry and exit was provided by traction on the capsular flaps. I then reamed sequentially up to a 54mm reamer where good fit was obtained. The larger reamers were oriented based on anatomical reference of the anterior and lateral barajas to ensure proper abduction and anteversion. Positioning and size was confirmed with the fluoroscopy. A 54mm Depuy Hereford acetabular component was selected. The acetabulum was reamed around the periphery with the selected acetabular size to prevent a rim fit. The deep tissues were irrigated. The acetabular component was then impacted in a position of about 40-45 degrees of abduction and 15-20 degrees of anteversion, using the patient?s anatomy as the ultimate landmark. Fluoroscopy was used to confirm this. There was excellent vacuum tester cans of the acetabular component and the inserting handle was removed. The acetabular liner, Depuy [id number] polyethylene liner, was inserted and lined up with the tines of the acetabular component. There was no soft tissue interposition. The liner was then impacted into position and confirmed to be well-seated. A portion of the tawny-articular cocktail was then injected around the acetabulum into the capsule and periosteum. This cocktail consisted of 50cc of 0.25% Bupivicaine and 20cc of Exparel, expanded to a total of 120cc. Traction was released from the femur. The leg was rotated to 120 degrees. Any remaining medial capsule was released until the lesser trochanter was easily palpable. A Montaño retractor was placed medially. The lateral capsule was further released into the shoulder to allow access to the greater trochanter. A Montaño retractor was placed over the greater trochanter which allowed the trochanter to flip in front of the capsule for excellent exposure. The leg was brought down into maximal extension and 20 degrees of adduction while ensuring there was no impingement on the acetabulum. Any remnant capsule within the trochanter was released. Piriformis and obturator externis were identified and protected. There was excellent access to the proximal femur. The lateral neck remnant was removed with a rongeur. A blunt canal probe was used to identify the canal and trajectory for later broaching. A box osteotome initiated the broach course. A small curved rasp and a curved curette were used to work laterally. Broaching then began with a size 8 Corail broach. This was inserted manually around the trochanter and into the canal before mallet blows. The broach was seated to a few millimeters below the cut level based on the neck cut and the preoperative template. Sequential broaching was continued with the Breatherse pneumatic broaching device until a tight fit was obtained with good rotational control of the femur. A trial standard neck was inserted along with a +5 trial head. The leg was brought out of extension and adduction and then reduced with traction and internal rotation. The leg was stable anteriorly in a position of 30 degrees of extension and 90 degrees of external rotation. Fluoroscopy was used to ensure there was no fracture and the stem was seated well. Leg lengths were checked with an AP pelvis and pelvic reference points. [employer] navigation system was used to confirm appropriate positioning and leg length and offset. This seemed to undercorrect offset and leg length by 1-2mm so I chose a +8.5mm head. Once content with the desired offset and leg lengths, the leg was brought back into extension, external rotation and adduction. The periosteum and surrounding tissue was injected with remaining portion of the tawny-articular cocktail. The proximal femur was irrigated as well as the deep tissues. The Depuy Corail standard collared stem, size 12, was then manually inserted into the proximal femur making sure to control rotation. It was then malleted into position with light blows, giving breaks to allow bone expansion and decrease risk of fracture. The selected Depuy Altrx Ceramic Head, size 36+8.5mm, was then placed onto the clean and dry trunnion and secured with impaction onto the tapered fit. The leg was brought back out of extension and adduction and reduced with traction and internal rotation. Stability was confirmed with no shuck at 90 degrees of external rotation and 30 degrees of extension. No impingement through range of motion arc. Final x-ray images were obtained with fluoroscopy to confirm adequate positioning and no intraoperative fracture. The deep tissues were thoroughly irrigated with Irrisept chlorhexadine solution. The second dose of TXA 1g was administered intravenously.The capsule was then reapproximated with the previously placed Ethibond sutures. The TFL fascia was finally closed with a No. 2 Stratafix, barbed suture. Deep tissues were then reapproximated with 0 Vicryl and a running 2-0 Vicryl. The skin was closed with a running 4-0 Monocryl in a subcuticular fashion. This was reinforced with skin glue. A Mepilex silver dressing was applied. At the end of the case, all counts were correct. Shaheed was transferred to the hospital bed without difficulty and suffering no apparent complication. Shaheed has a good prognosis. Physical therapy will start today and without restrictions, weight-bearing as tolerated. Rivaroxaban 10mg daily will be used for DVT prophylaxis.
[2020-11-06] MEDS: ceFAZolin 1 GM/50 ML BAG IVPB ×2 (14:51→21:46)
--- NOTE | 2020-11-06 15:50 | W.ANESPOSTOP ---
Postoperative Evaluation Date, Time and Location Date Performed: 11/06/20 Time Performed: 15:50 Patient Location: Med/Surg Vital Signs Most Recent Imported Vital Signs: Most Recent Vital Signs Temp Pulse Resp BP Pulse Ox 36.2 C L 40 L 16 126/73 100 11/06/20 13:37 11/06/20 13:37 11/06/20 13:37 11/06/20 13:37 11/06/20 13:37 Pain Score Most Recent Pain Score: Most Recent Pain Score Pain Level 0 11/06/20 13:37 Assessment Mental Status: Awake (Alert & Oriented to Patient Baseline) Airway and Respiratory Function: Patent airway with normal (patient baseline) respiratory exam Cardiovascular Function: Hemodynamically Stable Hydration Status: Adequately Hydrated Nausea & Vomiting: No Nausea or Vomiting Pain: Pain is tolerable per patient Peripheral Nerve Block: Other (Spinal wearing off. Gaining both motor and sensory of bilateral lower extremities)
--- NOTE | 2020-11-06 16:09 | PT.INIE ---
Date of service: 11/06/20 Time of Service: 16:09 PT Notes Visit Reasons: Bilateral hip DJD Physical Therapy Inpatient Initial Evaluation Date: 11/06/2020 Referring Doctor: KWADWO Berger PT Orders: PT CONSULT: Status post Ortho surgery Precautions: Fall. Standard. WBAT on BLE with AD Patient Profile/Admitting Diagnosis: Shaheed is a 65-year-old male with degenerative joint disease of bilateral hips and is status post bilateral hip anterior total arthroplasty with intraoperative navigation on postoperative day 0. PMHX: Medical History Impacted cerumen of both ears Nasal polyp Otitis externa Surgical History (Updated 10/30/20 @ 10:22 by Susan Walters) History of nasal polyp (11/29/15) Status post colonoscopy Social History/Home Situation: Lives with in a private home with no steps to enter. has respiratory compromise but will be able to provide support with minimal preparation and light house chores. Patient is independent with all aspects of ADLs prior to surgery without an assistive device. Has a stair lift installed to the second floor of the house per their bedroom is. Plans on staying on the first floor for the first few days in case of pain gets in the way. 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 Equipment Owned/DME: Walk-in shower with seat Subjective: Patient was initially approached around 4:09 PM and agreed to be interviewed but states that he is not ready to get out of bed. Wants to wait a while after he gets his pain pill from Nurse Concepcion. Reports 6/10 pain in B hips at rest and with little movement. Saw patient half an hour later and remains highly leary about getting up as his pain has now increased to at least 7/10. Nurse Carlene updated. Patietn and are both agreeable to holding off on mobility assessment until tomorrow morning. Objective: General Observation: Supine in bed. Bilateral SCDs in place. Bilateral TDS in place. IV in left knee. Mccarthy catheter in place. Mental Status: Alert and oriented as to person, place, time, and purpose. Able to pay attention, focus, and respond appropriately. Pain: 6/10 in B hips, increased to 7/10 during second attempt at mobility assessment ROM: NT. Patient declined due to significant pain in B hips. Strength: NT. Patient declined due to significant pain in B hips. Bed Mobility/Transfers: NT. Patient declined due to significant pain in B hips. Gait: NT. NT. Patient declined due to significant pain in B hips. Balance: N/A. NT. Patient declined due to significant pain in B hips. Special Tests: Mobility Limitations Standardized Measure [facility] AM-PAC 6 clicks Basic Mobility Inpatient Short Form: Raw Score: 6 CMS Score: 100% deficit Informed Consent/Education: Patient and would both like to wait until after pain is much more controlled tomorrow morning so he can do better with inigtial mobility assessment. Assessment: Pain report at -10/27 prevented patient from agreeing to perform mobility assessment. Pain intensity appears to be significantly more more by the way patient was holding his breath and by his facial expression. Verbalized that the reason why he had both his hips done is because of the pain level he has right now. Only performed patient interview and patient goals for this evaluation. Will retry mobility assessment tomorrow morning. Patient presents with clinical signs and symptoms consistent with current/admitting diagnoses that have resulted to mobility limitations, gait instability, generalized weakness, and overall ADL decline as demonstrated by the following impairment level findings: 1. Pain in B hips and thighs 2. Decreased strength to B hips major muscle groups 3. Impaired standing balance 4. Impaired activity tolerance 5. Limitation of joint range of motion in B hips 6. Shortness of breath Impairments are contributing to the following functional limitations: 1. Decline in bed mobility skills 2. Decline in transfer skills 3. Held off on mobility assessment due to patient's pain level 4. Increased fall risk Patient is assessed as a 92433 moderate complexity based on the following: History: 65-year-old male with past medical history as indicated above Examination: Demonstrable impairment in strength, balance, and mobility level with underlying impairments and functional limitations as exhibited above as well as deficit score of 100% utilizing the [facility] Mobility Inpatient Short Form Presentation: Evolving Decision Makin moderate complexity Goals: Goals X1 week 1. Supine-Sit independent 2. Sit-Supine independent 3. Sit-Stand independent 4. Stand-Sit independent with FWW 5. Bed-Chair independent with FWW 6. Chair-Bed independent with FWW 7. Independent gait on level surface with use of FWW for at least 300 feet without report of pain nor dyspnea 8. Independent stair negotiation while holding onto B rails for at least 13 steps without report of pain nor dyspnea 9. Independent with home exercise program 10. Good static and dynamic standing balance/tolerance Plan of Care/Treatment Plan: 1-2x/day, 7 days/week x 1 week. Plan of care has been reviewed with the SEWING TRIMMER providing the service under Physical Therapy direction. Initiate Physical Therapy intervention for pain management as needed, strengthening, bed mobility, transfers, gait, stairs, balance training, and use of assistive device. DISCHARGE RECOMMENDATIONS: SNF vs HH PT depending on initial mobility level and pain control TREATMENT CODE/TIME: 50620 x 21 minutes beginning at 16:09 PM. Thank you for the opportunity to participate in the care of this patient. Magda Woody PT, DPT, CLT [facility] [place], [place]
[2020-11-06] MEDS: oxyCODONE 5 MG TAB PO ×2 (16:21→17:18)
[2020-11-06] MEDS: HYDROmorphone 2 MG/ML VIAL 0.5 MG IVP (17:20)
[2020-11-06] MEDS: Normal Saline Flush 10 ML SYR IV (17:20)
[2020-11-06] MEDS: Rivaroxaban 10 MG TABLET PO (21:46)
[2020-11-06] MEDS: Docusate Sodium 100 MG CAP PO (22:01)
[2020-11-07] MEDS: oxyCODONE 5 MG TAB PO ×4 (00:36→08:06)
[2020-11-07] MEDS: HYDROmorphone 2 MG/ML VIAL 1 MG IVP ×2 (00:50→02:43)
[2020-11-07] MEDS: Normal Saline Flush 10 ML SYR IV ×2 (00:51→02:45)
[2020-11-07 03:38] VITALS: BP 131/79; PULSE 65; RESP 20; TEMP 36.6; O2SAT 97
[2020-11-07] MEDS: Lactated Ringers 1,000 ML 80 ML IV (05:25)
[2020-11-07] MEDS: ceFAZolin 1 GM/50 ML BAG IVPB (05:28)
--- NOTE | 2020-11-07 07:44 | W.PM.PROGNOT ---
Date of Service Date of service: 11/07/20 Time of Service: 07:44 Assessment and Plan Assessment and plan (1) Primary osteoarthritis of left hip: Status: Acute (2) Primary osteoarthritis of right hip: Status: Acute Assessment and plan: Shaheed is a 65-year-old status post bilateral hip replacements. He is doing well. He has had some pain issues but they seem to be well controlled with modifications of the bed and the use of pain medications. He has not got out of the bed yet which typically does improve pain by moving the legs around and getting things stretched. I expect to be able to go home later today. There are no acute medical, anesthetic, or surgical complications. DC the Mccarthy this morning. Work with PT. Likely DC to home. Subjective Subjective Interval history since last seen: Shaheed currently reports be doing well. He has some issues with pain initially and also through the night. The SCD machine seem to be causing pain in his legs and those have been discontinued and his pain in the legs is much better. He denies any active numbness or tingling. He has not gone out the bed. He has only mild pain around the hips. His Mccarthy catheter still in place. No fever or chills or shortness of breath or chest pain. Exam Narrative Exam Narrative: Sitting up in the hospital bed. No acute distress. Alert and orient x3. Evaluation of bilateral hips shows clean dry and intact dressings. Mild swelling around the left hip more so than the right hip but nothing firm. No ecchymosis. He is able to actively extend both knees as well as dorsiflex and plantarflex both ankles as well either in feet. Sensation intact light touch over the femoral and sciatic nerve distributions bilaterally. Objective Last Vital Signs Temp 36.6 C 11/07/20 03:38 Pulse 65 11/07/20 03:38 Resp 20 11/07/20 03:38 BP 131/79 11/07/20 03:38 Pulse Ox 97 11/07/20 03:38
[2020-11-07] MEDS: Pantoprazole 40 MG TABCR PO (07:48)
--- NOTE | 2020-11-07 07:52 | DSE_ITS ---
Documented by User: Susan Walters 11/06/20 07:38 DS: Diagnosis Discharge Diagnosis (1) Primary osteoarthritis of left hip: Status: Acute (2) Primary osteoarthritis of right hip: Status: Acute Discharge Plan Disposition Patient Disposition: HOME Condition: Good Discharge Details Reason For Visit: Bilateral hip DJD Admit Date/Time: 11/06/20 05:59 Admit Provider: Marcel Hopkins Attending Provider: Marcel Hopkins Primary Care Provider: Nikky Henao Hospital Course Hospital Course: Patient was admitted to the medical/surgical floor following the procedure. The surgery was tolerated well without any notable medical, surgical, or anesthetic complications. Mobilization began postoperatively. Vitals were stable and the residual bradycardia improved. Physical therapy worked with the patient and was cleared for discharge home. No acute medical issues. Pain was controlled on oral regimen. Home Meds and New Rx's Prescriptions: New acetaminophen 500 mg tablet 500 mg PO Q6H PRN (Reason: pain) Qty: 60 RF: 2 docusate sodium [Colace] 100 mg capsule 100 mg PO BID Qty: 30 RF: 0 oxycodone 5 mg tablet 5 mg PO Q6H PRN (Reason: severe post-operative pain) Qty: 12 RF: 0 Xarelto 10 mg tablet 10 mg PO DAILY Qty: 35 RF: 0 Continued fluticasone propionate 50 mcg/actuation spray,suspension 2 spray NS DAILY PRN (Reason: allergy symptoms) RF: 0 chlorhexidine gluconate 0.12 % mouthwash 15 ml mucous membrane DAILY RF: 0 cholecalciferol (vitamin D3) 1,250 mcg (50,000 unit) capsule 50,000 unit PO weekly Qty: 8 RF: 4 propranolol 120 mg capsule,extended release 24 hr 120 mg PO DAILY Qty: 90 RF: 4 montelukast 10 mg tablet 10 mg PO DAILY Qty: 90 RF: 4 omeprazole 40 mg capsule,delayed release(DR/EC) 40 mg PO DAILY Qty: 90 RF: 3 Discharge Instructions Additional Instructions: Total Hip Discharge Instructions Activity: The most important activity is to walk. You should try to take short walks a few times a day. You have no restrictions on movement or positioning, but do not try to force what you do. You will find some stiffness and weakness with hip flexion (lifting your knee). Do not try to strengthen this too early, continue to practice walking and stairs and this will come. - Outpatient physical therapy can be helpful to help return you to a normal gait and improve your flexibility and strength. This can start around 2 weeks. For some patients, it?s not necessary. Usually this is determined at the time of discharge or at the first post-operative visit. - You should wear the SUSHILA hose on both legs for 2 weeks. Dressing: Keep the surgical dressing in place for at least one week. After the first week it may be removed and replace with light gauze and tape or nothing. It may get wet after 3 days but avoid soaking the dressing. If it gets wet, just lightly pat dry. It is important to always keep some gauze between skin folds, especially when you are sitting. Spend some time with the wound exposed when you are lying flat as the incision does wrinkle onto itself. Medications: - You should take Tylenol as your primary pain control medications. - You have been prescribed a stronger pain medication Oxycodone for breakthrough pain, take as needed as prescribed. - You have a previous prescription for omeprazole - continue to take this medication to help reduce stomach acid and reflux. - You will be taking Rivaroxaban (Xarelto) for DVT prevention. - If you have constipation you should take Colace (which was prescribed) or Miralax (which you may purchase [id number]). It takes most people 3-4 days to have a bowel movement. Follow-up: 2 weeks If you have any acute concerns or questions, please do not hesitate to contact [facility] office at [phone]. You may contact Dr. Hopkins with any questions after hours through the hospital at [phone] or on his cell phone at [phone]. Referrals: Marcel Hopkins MD [ [facility] STAFF PHYSICIAN] - Activity:: Activity as Tolerated Equipment/Supplies:: Walker Diet:: As Tolerated Discharge Orders Discharge Orders: Discharge Order (Routine); Ordered 11/07/20 Ordered By: Marcel Hopkins DS: Data Vitals/I&O Vitals and I&O: Vital Signs Temperature 36.7 C 11/06/20 06:16 Pulse 53 L 11/06/20 06:16 Pulse Rhythm Regular 11/06/20 06:16 Respiratory Rate 18 11/06/20 06:16 Respiratory Depth Normal 11/06/20 06:16 Blood Pressure 138/71 11/06/20 06:16 Pulse Oximetry 98 11/06/20 06:16 Oxygen Delivery Method Room Air 11/06/20 06:16 Oxygen Flow Rate 0 11/06/20 06:16 Pain Level 0 11/06/20 06:16 Comment 11/06/20 06:16 Intake & Output 11/05/20 11/05/20 11/06/20 11:59 23:59 11:59 Weight 95.254 kg 96 kg [facility] Medical History Impacted cerumen of both ears Nasal polyp Otitis externa Surgical History History of nasal polyp (11/29/15) Status post colonoscopy Family History Mother Skin cancer Father Skin cancer Sister Cancer Brother No problems noted. Brother No problems noted. Social History Smoking/Tobacco Use Status: Former Tobacco Use Quit Date: 04/20/06 Tobacco: How many years used: 30 Smoking risk assessment performed?: Yes Alcohol Intake: current Alcohol Intake frequency: 0-2 drinks per day Alcohol type: beer Drug use: Occasionally Substance use type: marijuana Caregiver/Support person: No Household members: spouse Housing: house Communication Needs: None Do you need help understanding health information?: Rarely Pets and animals: Yes Pets and animals: cat(s) Sexually active: Yes Do you think of yourself as: straight/heterosexual Current gender identity: male What is your relationship status?: How often do you talk on the phone with friends or family?: once per week How often do you get together with friends or relatives?: once per week Do you belong to any clubs or organized social groups?: no Panel score (0-1 are the most socially isolated patients): 1 What type of physical activity do you participate in: bicycling Duration: 15-30 minutes/day Frequency: 1-2 times per week Jackelyn/Gnosticism: None Special jackelyn needs: No Seatbelt use: always 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 Documented by User: Marcel Hopkins MD 11/07/20 07:52 Date of service: 11/07/20 Time of Service: 07:49 Discharge Plan Disposition Patient Disposition: HOME Condition: Good Discharge Details Reason For Visit: Bilateral hip DJD Admit Date/Time: 11/06/20 05:59 Admit Provider: Marcel Hopkins Attending Provider: Marcel Hopkins [facility] Hospital Course: Patient was admitted to the medical/surgical floor following the procedure. The surgery was tolerated well without any notable medical, surgical, or anesthetic complications. Mobilization began postoperatively. Vitals were stable and the residual bradycardia improved. Physical therapy worked with the patient and was cleared for discharge home. No acute medical issues. Pain was controlled on oral regimen. Home Meds and New Rx's Prescriptions: New acetaminophen 500 mg tablet 500 mg PO Q6H PRN (Reason: pain) Qty: 60 RF: 2 docusate sodium [Colace] 100 mg capsule 100 mg PO BID Qty: 30 RF: 0 oxycodone 5 mg tablet 5 mg PO Q6H PRN (Reason: severe post-operative pain) Qty: 12 RF: 0 Xarelto 10 mg tablet 10 mg PO DAILY Qty: 35 RF: 0 Continued fluticasone propionate 50 mcg/actuation spray,suspension 2 spray NS DAILY PRN (Reason: allergy symptoms) RF: 0 chlorhexidine gluconate 0.12 % mouthwash 15 ml mucous membrane DAILY RF: 0 cholecalciferol (vitamin D3) 1,250 mcg (50,000 unit) capsule 50,000 unit PO weekly Qty: 8 RF: 4 propranolol 120 mg capsule,extended release 24 hr 120 mg PO DAILY Qty: 90 RF: 4 montelukast 10 mg tablet 10 mg PO DAILY Qty: 90 RF: 4 omeprazole 40 mg capsule,delayed release(DR/EC) 40 mg PO DAILY Qty: 90 RF: 3 Discharge Instructions Additional Instructions: Total Hip Discharge Instructions Activity: The most important activity is to walk. You should try to take short walks a few times a day. You have no restrictions on movement or positioning, but do not try to force what you do. You will find some stiffness and weakness with hip flexion (lifting your knee). Do not try to strengthen this too early, continue to practice walking and stairs and this will come. - Outpatient physical therapy can be helpful to help return you to a normal gait and improve your flexibility and strength. This can start around 2 weeks. For some patients, it?s not necessary. Usually this is determined at the time of discharge or at the first post-operative visit. - You should wear the SUSHILA hose on both legs for 2 weeks. Dressing: Keep the surgical dressing in place for at least one week. After the first week it may be removed and replace with light gauze and tape or nothing. It may get wet after 3 days but avoid soaking the dressing. If it gets wet, just lightly pat dry. It is important to always keep some gauze between skin folds, especially when you are sitting. Spend some time with the wound exposed when you are lying flat as the incision does wrinkle onto itself. Medications: - You should take Tylenol as your primary pain control medications. - You have been prescribed a stronger pain medication Oxycodone for breakthrough pain, take as needed as prescribed. - You have a previous prescription for omeprazole - continue to take this medication to help reduce stomach acid and reflux. - You will be taking Rivaroxaban (Xarelto) for DVT prevention. - If you have constipation you should take Colace (which was prescribed) or Miralax (which you may purchase [id number]). It takes most people 3-4 days to have a bowel movement. Follow-up: 2 weeks If you have any acute concerns or questions, please do not hesitate to contact the office at [phone]. You may contact Dr. Hopkins with any questions after hours through the hospital at [phone] or on his cell phone at [phone]. Referrals: Marcel Hopkins MD [ [facility] STAFF PHYSICIAN] - Activity:: Activity as Tolerated Equipment/Supplies:: Walker Diet:: As Tolerated Discharge Orders Discharge Orders: Discharge Order (Routine); Ordered 11/07/20 Ordered By: Marcel Hopkins DS: Summary Time Spent with Patient providing and/or coordinating discharge services: Less than 30 minutes Status at Discharge Functional status at discharge: uses cane/walker Overall status at discharge: patient is progressing back to baseline Mental Status: mental status grossly normal Speech and Movement: speech and movement normal Mood: congruent mood Affect: normal affect Exam Psych Mental Status: mental status grossly normal Speech and Movement: speech and movement normal Mood: congruent mood Affect: normal affect [facility] Medical History Impacted cerumen of both ears Nasal polyp Otitis externa Surgical History History of nasal polyp (11/29/15) Status post colonoscopy Family History Mother Skin cancer Father Skin cancer Sister Cancer Brother No problems noted. Brother No problems noted. Social History Smoking/Tobacco Use Status: Former Tobacco Use Quit Date: 04/20/06 Tobacco: How many years used: 30 Smoking risk assessment performed?: Yes Alcohol Intake: current Alcohol Intake frequency: 0-2 drinks per day Alcohol type: beer Drug use: Occasionally Substance use type: marijuana Caregiver/Support person: No Household members: spouse Housing: house Communication Needs: None Do you need help understanding health information?: Rarely Pets and animals: Yes Pets and animals: cat(s) Sexually active: Yes Do you think of yourself as: straight/heterosexual Current gender identity: male What is your relationship status?: How often do you talk on the phone with friends or family?: once per week How often do you get together with friends or relatives?: once per week Do you belong to any clubs or organized social groups?: no Panel score (0-1 are the most socially isolated patients): 1 What type of physical activity do you participate in: bicycling Duration: 15-30 minutes/day Frequency: 1-2 times per week Jackelyn/Gnosticism: None Special jackelyn needs: No Seatbelt use: always 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
[2020-11-07] MEDS: Acetaminophen 500 MG TAB 1000 MG PO (08:06)
[2020-11-07 10:11] VITALS: BP 145/80; PULSE 63; RESP 18; TEMP 36.7; O2SAT 97
--- NOTE | 2020-11-07 11:06 | PT.INDS ---
Date of service: 11/07/20 Time of Service: 11:06 PT Notes Visit Reasons: Bilateral Hip DJD Physical Therapy physical Therapy Inpatient Discharge Summary Date: 11/07/2020 Dates of Service: 11/06/2020 through 11/07/2020 Referring Doctor: KWADWO Berger PT Orders: PT CONSULT: Status post Ortho surgery Precautions: Fall. Standard. WBAT on BLE with AD Patient Profile/Admitting Diagnosis: Shaheed is a 65-year-old male with degenerative joint disease of bilateral hips and is status post bilateral hip anterior total arthroplasty with intraoperative navigation on postoperative day 0. PMHX: Medical History Impacted cerumen of both ears Nasal polyp Otitis externa Surgical History (Updated 10/30/20 @ 10:22 by Susan Walters) History of nasal polyp (11/29/15) Status post colonoscopy Social History/Home Situation: Lives with in a private home with no steps to enter. has respiratory compromise but will be able to provide support with minimal preparation and light house chores. Patient is independent with all aspects of ADLs prior to surgery without an assistive device. Has a stair lift installed to the second floor of the house per their bedroom is. Plans on staying on the first floor for the first few days in case of pain gets in the way. 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 Equipment Owned/DME: Walk-in shower with seat Subjective: Reports feeling a lot better. Pain in B hips are more tolerable at 1-2/10. Agreeable to going for a walk before he goes home. States that he will just be staying on the main floor of the house while he recovers. Objective: General Observation: Supine in bed. Bilateral SCDs in place. Bilateral TEDS in place. Mental Status: Alert and oriented as to person, place, time, and purpose. Able to pay attention, focus, and respond appropriately. Pain: 1-2/10 in B hips ROM: Right Upper Extremity: Shoulder Flexion WFL. Shoulder abduction WFL. Elbow flexion WFL. Wrist flexion WFL. Functional opening and closing of hand WFL. Left Upper Extremity: Shoulder Flexion WFL. Shoulder abduction WFL. Elbow flexion WFL. Wrist flexion WFL. Functional opening and closing of hand WFL. Right Lower Extremity: Hip flexion allows up to 20 degrees beyond 90 while seated wt edge of bed. Hip abduction WFL. Knee flexion WFL. Ankle dorsiflexion WFL. Ankle plantarflexion WFL. Left Lower Extremity: Hip flexion Hip flexion allows up to 20 degrees beyond 90 while seated wt edge of bed. Hip abduction WFL. Knee flexion WFL. Ankle dorsiflexion WFL. Ankle plantarflexion WFL. Strength: Right Upper Extremity: Shoulder flexors 5/5. Shoulder abductors 5/5. Elbow flexors 5/5. Elbow extensors 5/5. Station Detective strong. Left Upper Extremity: Shoulder flexors 5/5. Shoulder abductors 5/5. Elbow flexors 5/5. Elbow extensors 5/5. Station Detective strong. Right Lower Extremity: Hip flexors 4-/5. Hip abductors 4-/5. Knee flexors 5/5. Knee extensors 4-/5. Ankle dorsiflexors 5/5. Ankle plantarflexors 5/5. Left Lower Extremity:Hip flexors 4-/5. Hip abductors 4-/5. Knee flexors 5/5. Knee extensors 4-/5. Ankle dorsiflexors 5/5. Ankle plantarflexors 5/5. Bed Mobility/Transfers: Supine to sit contact guard assst with HOB at 30 degrees Sit to stand contact guard assist Stand to sit contact guard assist Bed to chair contact guard assist Chair to bed contact guard assist Gait: 250 feet using FWW with step through gait pattern requiring stand by assist with pain report at 2-3/10. Denies headache, chest pain, and lightheadedness. Balance: Static sitting: Normal Dynamic Sitting: Normal Static standing: Fair Dynamic standing: Fair Assessment: Pain a lot more controlled today. Much improved mobility level. Will require use of FWW for home to maximize independence and reduce fall risk. Patient continues to present with clinical signs and symptoms consistent with current/admitting diagnoses that have resulted to mobility limitations, gait instability, generalized weakness, and overall ADL decline as demonstrated by the following impairment level findings: 1. Decreased strength to B hips major muscle groups 2. Impaired standing balance 3. Impaired activity tolerance 4. Limitation of joint range of motion in B hips 5. Shortness of breath Impairments are continuing to contribute g to the following functional limitations: 1. Decline in bed mobility skills 2. Decline in transfer skills 3. Increased fall risk Goals: Goals X1 week 1. Supine-Sit independent NOT MET 2. Sit-Supine independent NOT MET 3. Sit-Stand independent NOT MET 4. Stand-Sit independent with FWW NOT MET 5. Bed-Chair independent with FWW NOT MET 6. Chair-Bed independent with FWW NOT MET 7. Independent gait on level surface with use of FWW for at least 300 feet without report of pain nor dyspnea NOT MET 8. Independent stair negotiation while holding onto B rails for at least 13 steps without report of pain nor dyspnea NOT MET 9. Independent with home exercise program NOT MET 10. Good static and dynamic standing balance/tolerance NOT MET DISCHARGE RECOMMENDATIONS: Patient will benefit from home health PT services in order to progress mobility level using least restrictive assistive ambulatory device, assess home safety, identify additional equipment needs, and establish a functional maintenance program that will increase ability of patient to remain at home. TREATMENT CODE/TIME: 41132 x 46 minutes beginning at 11:06 AM. Thank you for the opportunity to participate in the care of this patient. Magda Woody PT, DPT, CLT [facility] [place], [place]
== END 2020-11-07 11:17 | disposition home or self-care (01) | DRG 462 ==
LOC: PDS 10:14 → MS 14:05
PROVIDERS: Admitting Provider Student in an Organized Health Care Education/Training Program; PCP Nurse Practitioner; Visit Provider Student in an Organized Health Care Education/Training Program
PROC: 0SR90JZ Replacement of Right Hip Joint with Synthetic Substitute, Open Approach (ICD-10-PCS; CPT 27130; principal; 2020-11-06 07:45)
DX: M16.12 Unilateral primary osteoarthritis, left hip (principal); M16.11 Unilateral primary osteoarthritis, right hip
CPT/HCPCS: 27130; 20985 ×2; 97110; 97162; 97530; 73501; J0171; J0690; J1200; J1885; J2001; J2250; J2370

== ENCOUNTER 2020-11-19 13:47 | Outpatient (CLI) | payer BC, SELFPAY ==
--- NOTE | 2020-11-19 10:00 | DI.RAD_ITS ---
Exam(s) XR HIP PELVIS ADULT BL EXAM: XR HIP PELVIS ADULT BL CLINICAL HISTORY: 1ST POST OP BILAT ROBERT. TECHNIQUE: 2D digital imaging was performed. COMPARISON: CR XR HIP PELVIS ADULT BL from 10/18/2020 FINDINGS: There has been interval placement of bilateral hip prostheses. These are in satisfactory position al ignment. No fractures or loosening evident. No radiographic evidence of osteomyelitis. IMPRESSION: DATA REPOSITORY: RADIATION DOSE DELIVERED:
== END 2020-11-19 13:48 | disposition home or self-care (01) ==
LOC: DIORS 13:47
PROVIDERS: PCP Nurse Practitioner; Referring Provider Nurse Practitioner; Visit Provider Physician Assistant
DX: Z96.643 Presence of artificial hip joint, bilateral (principal)
CPT/HCPCS: 73521

== ENCOUNTER 2020-12-17 19:09 | Outpatient (REF) | payer BC, SELFPAY | END 2020-12-17 19:10 | disposition home or self-care (01) | LOC: LBN 19:09 | PROVIDERS: PCP Nurse Practitioner; Visit Provider Nurse Practitioner Family | DX: R35.0 Frequency of micturition (principal) | CPT/HCPCS: 87086 ==

== ENCOUNTER 2021-01-16 10:59 | Observation (INO) | payer BC, SELFPAY ==
[2021-01-16] VITALS (51 sets, daily range): BP systolic 103–163; BP diastolic 62–86; PULSE 60–83; RESP 13–22; TEMP 36.6–37.2; O2SAT 92–100
--- NOTE | 2021-01-16 11:24 | DI.CT_ITS ---
Exam(s) CT CHEST PE ABD PELVIS W EXAM: CT CHEST PE ABD PELVIS W CLINICAL HISTORY: Left lower leg DVT R/O PE. TECHNIQUE: Imaging Protocol: Axial CT angiography was performed with multi-slice acquisition and m ulti-planar and/or 3D reconstructions. CONTRAST MATERIAL: Intravenous: Omnipaque 350 Contrast volume:100 ml Oral: None COMPARISON: No exams were available for comparison FINDINGS: CHEST: PULMONARY ARTERIES: There are no intra-arterial filling defects to suggest the presence of acute pulm onary emboli. LUNGS: There is a pleural-based density in the posterior basal segment of the right lower lobe, this measuring 3.7 By 1.3 cm. There is no overlying rib destruction. No pleural effusion. No other right l reza findings. No significant focal findings in the left lung. No pleural effusion on either side. No focal findings in trachea and mainstem bronchi. MEDIASTINUM: There is no hilar nor mediastinal adenopathy. Visualized thyroid unremarkable. CARDIAC: Heart size is normal. There is no pericardial effusion. There is no significant shift of t he interventricular septum.Diameter of the ascending thoracic aorta is 3.7 cm. No dissection. OSSEOUS: No significant osseous lesions.. ABDOMEN: There is no ascites. LIVER: There are no focal hepatic lesions nor dilatation of intrahepatic ducts. GALLBLADDER/BILIARY: Very subtle noncalcified density in the gallbladder lumen CBD is not dilated. PANCREAS: No evidence of pancreatic mass nor dilatation of the pancreatic duct. SPLEEN: Spleen is not enlarged. There are no intrasplenic lesions. Splenic and portal veins are patiño nt. ADRENALS: Slight thickening of the genu of the left adrenal gland possibly adenoma. Right adrenal gla nd unremarkable. KIDNEYS:Left kidney unremarkable. There is a cyst in the right kidney which measures 3 by 1.3 by 2 cm . No calculi nor hydronephrosis. No solid renal masses. ABDOMINAL AORTA: Abdominal aorta is not enlarged. LYMPH NODES: There is no retroperitoneal or para-aortic adenopathy. ABDOMINAL WALL/GI: No evidence of significant anterior abdominal wall hernia. No bowel obstruction. PELVIS: LYMPH NODES: There is no intrapelvic nor inguinal adenopathy. GI: No evidence of appendicitis.Extensive sigmoid diverticulosis. No obvious acute diverticulitis. URINARY BLADDER: Partially obscured by beam hardening artifact from bilateral hip prostheses. REPRODUCTIVE: Obscured by beam hardening artifact from bilateral hip prostheses OSSEOUS: Bilateral hip prostheses. IMPRESSION: 1. No evidence of acute pulmonary emboli nor pulmonary infarction. 2. There is, however, a 3.7 x 1.3 cm pleural based density in the posterior basal segment of the righ t lower lobe which require close follow-up to rule out malignancy, particularly given the patient's r ecent history. No other pulmonary findings nor pleural effusions. 3. No evidence of pancreatic malignancy, extensive DVT. 4. Possible subtle gallstone or other density in the gallbladder lumen. This noncalcified finding can be further studied with gallbladder ultrasound. 5. Benign cyst with measurements as above in the right kidney. No solid renal masses. 6. Sigmoid diverticulosis. No obvious acute diverticulitis. Bilateral hip prostheses noted. RADIATION DOSE DELIVERED: 1,678.85mGy.cm Total DLP DATA REPOSITORY: All CT scans at this facility are submitted to the National Radiology Data Registry (NRDR) Dose Index Registry (DIR) with the [employer] (ACR). RADIATION OPTIMIZATION: All CT scans at this facility use at least one of these dose optimization te chniques: automated exposure control; mA and/or kV adjustment per patient size (includes targeted exa ms where dose is matched to clinical indication); or iterative reconstruction.
--- NOTE | 2021-01-16 11:27 | W.ED.GENAD ---
Discharge Plan Disposition Patient Disposition: [facility] INPATIENT Condition: Stable Discharge Details Clinical Impression: Deep vein thrombosis (DVT) of femoral vein of left lower extremity Admit Date/Time: 01/16/21 15:46 Admit Provider: Deshawn Carlton Attending Provider: Deshawn Carlton Primary Care Provider: Nikky Henao ED Provider: Kamryn Horne Discharge Data Discharge Date/Time-TO BE ENTERED AT DEPARTURE: 01/16/21 15:57 Medical Decision Making 65-year-old male presents to the ER after having an ultrasound done of his left lower extremity this morning. Patient is status post bilateral hip replacement on November 06 of this year. He reports that he was doing great after surgery was going through physical therapy and noticed some left lower extremity swelling and pain starting on Thursday. It has got to the extent where he is having trouble walking. He does report pain 6 out of 10 upon initial exam. Left lower extremity is swollen. Discussed with biodiesel production technician ultrasound results prior to patient's arrival. Patient is denying any chest pain shortness of breath at this time. He is moaning in pain. He is not currently on any aspirin or blood thinners at this time. He does have a past medical history of migraine, GERD. US LOWER EXTREMITY VENOUS LT EXAM: US LOWER EXTREMITY VENOUS LT FINDINGS: This is a positive-abnormal study. There is extensive DVT clot load involving the entire length of the left lower extremity. There is intraluminal thrombus in the common femoral vein as well as throughout the entire femoral vein and popliteal vein and extending continuous through into the veins of the calf which are all seen to be collided with the exception of 1 of the posterior tibial veins which appears patent. Both peroneal veins are thrombosed. The length of the clot is approximately 62 cm length. The superficial system is patent including the greater saphenous vein. IMPRESSION: 1. Extensive DVT throughout the entire left lower extremity at and below the inguinal ligament down into an including the deep veins of the calf, as described above. 2. Please note that given this large clot load there is a possibility that there is clot higher up in the iliac veins (which were not imaged on this study). At this time work-up ordered including CBC CMP PT INR troponin EKG CT chest PE protocol and CT abdomen pelvis to rule out there is a clot higher in the iliac veins as noted in the ultrasound report above 1145: Patient is complaining of increasing pain fentanyl 50 mcgs IV ordered and Zofran IV. Patient given 0.5 mg of hydromorphone due to complaints of pain. 1400: Discussed patient case and details with Dr. Carlton who is on for hospitalist. He agrees to come down and evaluate patient here in the department. 1435: Dr. Marco A Viramontes here in the department to evaluate patient he does agree to accept patient for admission at this time due to patient's difficulty ambulating extensive DVT, for observation, anticoagulation therapy and further evaluation. HPI General Mode of arrival: wheelchair. Date/Time Provider Initiated Documentation: 01/16/21 11:02. Limitations to Documentation: no limitations. Information obtained by: patient, family and RN notes reviewed. HPI Narrative: 65-year-old male presents to the ER after having an ultrasound done of his left lower extremity this morning. Patient is status post bilateral hip replacement on November 06 of this year. He reports that he was doing great after surgery was going through physical therapy and noticed some left lower extremity swelling and pain starting on Thursday. It has got to the extent where he is having trouble walking. He does report pain 6 out of 10 upon initial exam. Left lower extremity is swollen. Discussed with biodiesel production technician ultrasound results prior to patient's arrival. Patient is denying any chest pain shortness of breath at this time. He is moaning in pain. He is not currently on any aspirin or blood thinners at this time. He does have a past medical history of migraine, GERD. Related Data Home Medications Medication Instructions Recorded Confirmed fluticasone propionate 50 2 spray NS DAILY PRN inh 03/05/18 01/16/21 mcg/actuation nasal spray,suspension cholecalciferol (vitamin D3) 1,250 50,000 unit PO weekly #8 cap 03/14/20 01/16/21 mcg (50,000 unit) capsule montelukast 10 mg tablet 10 mg PO DAILY #90 tab-cap 08/16/20 01/16/21 propranolol 120 mg capsule,24 120 mg PO DAILY #90 tab-cap 08/16/20 01/16/21 hr,extended release omeprazole 40 mg capsule,delayed 40 mg PO DAILY #90 tab-cap 10/02/20 01/16/21 release acetaminophen 500 mg PO Q6H PRN #60 tab 11/06/20 01/16/21 Previous Rx's Medication Instructions Recorded cholecalciferol (vitamin D3) 1,250 50,000 unit PO weekly #8 cap 03/14/20 mcg (50,000 unit) capsule montelukast 10 mg tablet 10 mg PO DAILY #90 tab-cap 08/16/20 propranolol 120 mg capsule,24 120 mg PO DAILY #90 tab-cap 08/16/20 hr,extended release omeprazole 40 mg capsule,delayed 40 mg PO DAILY #90 tab-cap 10/02/20 release acetaminophen 500 mg PO Q6H PRN #60 tab 11/06/20 Allergies Allergy/AdvReac Type Severity Reaction Status Date / Time aspirin Allergy Severe SWELLING Verified 12/17/20 13:48 NSAIDS (Non-Steroidal Allergy Severe SWELLING Verified 12/17/20 13:48 Anti-Inflamma General Stated Complaint: Vascular KORI: 3 Review of Systems All systems reviewed & are unremarkable except as noted in HPI and below Cardiovascular Cardiovascular: Denies chest pain, Reports pedal edema, Reports leg edema and Denies dyspnea Respiratory Respiratory: Denies dyspnea Musculoskeletal Musculoskeletal: Reports radiating pain into limb Comments: Left lower extremity swelling tenderness [facility] Medical History Impacted cerumen of both ears Nasal polyp Otitis externa Pain of left calf Surgical History H/O endoscopic sinus surgery Bilateral total ethmoidectomy, bilateral maxillary antrostomy, bilateral polypectomy, 2010 History of bilateral total hip arthroplasty (11/06/20) History of nasal polyp (11/29/15) Status post colonoscopy Family History Mother Skin cancer Father Skin cancer Sister Cancer Brother No problems noted. Brother No problems noted. Social History Smoking/Tobacco Use Status: Former Tobacco Use Quit Date: 04/20/06 Tobacco: How many years used: 30 Smoking risk assessment performed?: Yes Alcohol Intake: current Alcohol Intake frequency: 0-2 drinks per day Alcohol type: beer Drug use: Occasionally Substance use type: marijuana Caregiver/Support person: No Household members: spouse Housing: house Communication Needs: None Do you need help understanding health information?: Rarely Pets and animals: Yes Pets and animals: cat(s) Sexually active: Yes Do you think of yourself as: straight/heterosexual Current gender identity: male What is your relationship status?: How often do you talk on the phone with friends or family?: once per week How often do you get together with friends or relatives?: once per week Do you belong to any clubs or organized social groups?: no Panel score (0-1 are the most socially isolated patients): 1 What type of physical activity do you participate in: bicycling Duration: 15-30 minutes/day Frequency: 1-2 times per week Jackelyn/Nondenominational: None Special jackelyn needs: No Seatbelt use: always Drive intox 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 Appears stated age. Normal body habitus. Head: Normocephalic, no trauma. Eyes: ENT: Bilateral TM's WNL, External ear normal to inspection, no mastoid TTP, swelling, or erythema, Nasal turbinates WNL, no nasal discharge. Normal dentition, Posterior pharynx WNL, no exudate. Chest: RRR, Normal S1, S2, distal pulses intact. Resp: Lungs clear to auscultation bilaterally, no wheezes, rales, or rhonchi. Musculoskeletal: Left lower extremity swollen dorsal pedal pulses intact warm no significant erythema. Patient complaining of pain. Skin: No suspicious rashes or lesions. Capillary refill less than 2 sec. Neurologic: Cranial nerves II-XII intact. Alert and oriented x 3. DTR's intact. Hematologic/Lymphatic: No ecchymosis, no lymphadenopathy. Course Vital Signs Vital signs: Vital Signs Temperature 36.6 C 01/16/21 11:12 Pulse 69 01/16/21 11:12 Respiratory Rate 16 01/16/21 11:12 Blood Pressure 163/80 H 01/16/21 11:12 Pulse Oximetry 100 01/16/21 11:12 Temperature 36.6 C 01/16/21 11:12 Temperature Source Tympanic 01/16/21 11:12 Pulse 69 01/16/21 11:12 Respiratory Rate 16 01/16/21 11:15 Respiratory Effort Non-Labored 01/16/21 11:15 Respiratory Depth Normal 01/16/21 11:15 Respiratory Pattern Normal 01/16/21 11:15 Blood Pressure 163/80 H 01/16/21 11:12 Blood Pressure Position Sitting 01/16/21 11:12 Pulse Oximetry 100 01/16/21 11:12 Oxygen Delivery Method Room Air 01/16/21 11:12 Oxygen Flow Rate 0 01/16/21 11:12 Pain Level 4 01/16/21 11:15 PAWSS Pt Consumed Any Amount of Alcohol Within the Last 30 days OR had positive LEIGH ANN Upon Admission: Yes Have you Been Recently Intoxicated or Drunk Within the Last 30 days?: No Have you Ever Experienced Previous Episodes of Alcohol Withdrawal?: No Have you ever Experienced Withdrawal Seizures?: No Have you ever Experienced Delirium Tremens(DT)s?: No Have you ever undergone Alcohol Rehabilitation Treatment (i.e, inpt ot outpatient treatment programs)?: No Have you ever Experienced Blackouts?: No Have you ever Combined Alcohol with other Downers within the last 90 days?: No Have you ever Combined Alcohol with any other Substance of Abuse during the last 90 days?: No Positive Blood Alcohol level on Presentation? [PCS.BAL]: No Evidence of Increased Autonomic Activity (i.e. HR>120, tremor, sweating, agitation, nausea)?: No Result: 0
--- NOTE | 2021-01-16 11:30 | RT.EKG_ITS ---
APPROVED REPORT Exam: Resting ECG Reason for Exam: dvt Patient Location: E HR:65 bpm ECG Measurements Heart Rate 65 AXIS MN 191 P 81 QRSd 85 QRS 72 QT 380 T 67 QTc 396 Conclusion Sinus rhythm...normal P axis, V-rate 60- 99
[2021-01-16 11:38] LABS: Abs Immature Grans 0.05 10^3/uL (0.0-0.06); Absolute Lymphocyte Count 1.28 10^3/uL (1.2-3.4); Basophils % 0.6; Eosinophils % 4.3; HCT 43.9 % (40.0-50.0); Immature Grans % 0.5; Lymphocytes % 11.8; MCH 28.9 pg (27.0-33.0); MCHC 31.9 % (32.0-36.0); MCV 90.7 fL (80-95); MPV 9.9 fL (8.0-11.0); Neutrophils % 74.8; Nucleated RBC 0 %; Platelet Count 307 10^3/uL (130-400); RBC 4.84 10^6/uL (4.36-5.78); RDW 13.2 % (11.8-14.1); RDW-SD 44.1 fL; WBC 10.81 10^3/uL (4.4-10.8)
[2021-01-16 11:40] LABS: Absolute Basophil Count 0.06 10^3/uL (0.0-0.2); Absolute Eosinophil Count 0.46 10^3/uL (0.0-0.7); Absolute Monocyte Count 0.86 10^3/uL (0.1-0.8); Absolute Neutrophil Count 8.09 10^3/uL (1.2-6.7)
[2021-01-16] MEDS: fentaNYL 100 MCG/2 ML VIAL 50 MCG IVP (11:53)
[2021-01-16] MEDS: Ondansetron 4 MG/2 ML VIAL IVP (11:54)
[2021-01-16 11:57] LABS: ALT 30 U/L (16-63); AST 16 U/L (15-37); Albumin 3.2 g/dL (3.4-5.0); Alkaline Phosphatase 86 U/L (46-116); Anion Gap 3.3 mmol/L (3-11); BUN 17 mg/dL (7-18); Bilirubin, Total 0.5 mg/dL (0.2-1.0); CO2 34.7 mmol/L (21.0-32.0); CREATININE 1.1 mg/dL (0.70-1.30); Calcium 9.3 mg/dL (8.5-10.1); Chloride 101 mmol/L (98-107); Glucose 99 mg/dL (74-106); Potassium 4.3 mmol/L (3.5-5.1); Sodium 139 mmol/L (136-145); Total Protein 7.9 g/dL (6.4-8.2); Troponin I < 0.05 ng/mL (<0.06)
[2021-01-16 12:13] LABS: INR 1.1 (0.9-1.1); Prothrombin Time 10.8 sec (9.3-11.0)
[2021-01-16] MEDS: Omnipaque 350 MG/ML 100 ML BTL IJ (12:44)
[2021-01-16] MEDS: Normal Saline - Diluent 50 ML VIAL IV (12:45)
[2021-01-16] MEDS: Enoxaparin 100 MG/ML SYR 92 MG SC (12:48)
[2021-01-16 13:24] LABS: PTT Activated 25.8 sec (21.0-27.5)
[2021-01-16] MEDS: HYDROmorphone 2 MG/ML VIAL 0.5 MG IVP (13:25)
[2021-01-16 14:54] LABS: Troponin I < 0.05 ng/mL (<0.06)
[2021-01-16 15:03] LABS: Source Nasal/Nares
[2021-01-16 15:56] LABS: COVID-19 PCR Negative (Negative)
--- NOTE | 2021-01-16 16:02 | INITIAL_ITS ---
- If Service Date Differs Date of service: 01/16/21 Time of Service: 16:02 Care Management Initial Assess REASON FOR HOSPITALIZATION:: Deep vein thrombosis (DVT) of left lower extremity. PAST MEDICAL HISTORY/PAST SURGICAL HISTORY:: Medical History: Impacted cerumen of both ears, Nasal polyp, Otitis externa, and Pain of left calf. Surgical History: H/O endoscopic sinus surgery - Bilateral total ethmoidectomy, bilateral maxillary antrostomy, bilateral polypectomy, 2010, History of bilateral total hip arthroplasty (11/06/20), History of nasal polyp (11/29/15), and Status post colonoscopy. PREVIOUS FUNCTIONAL STATUS/SOCIAL/FAMILY SUPPORTS:: Shaheed lives in [place] with his Judith and their two cats. 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 Shaheed now occupies his time with housework and yardwork, playing computer games, swimming, and driving his [place]. Shaheed has 2 brothers and 1 sister who live locally and are supportive of him. His 98 year old mother also lives in the area and Shaheed visits her as often as he can. Shaheed is independent with his ADLs at baseline. CURRENT FUNCTIONAL STATUS:: Shaheed is lying in bed when CM comes to meet with him. His , Judith, is present in the room. Shaheed shares that he had bilateral hip replacement surgery in October of this year. He states he was finally back on his feet and was doing really well until a few days ago when he began to have pain and swelling in his left leg. ADVANCE DIRECTIVES:: On file; Judith is appointed as Health Care Agent. Has patient been provided with info about the portal/API?: Yes Did the patient sign up for the portal?: Yes (Previously enrolled.) CODE STATUS:: Full Code INSURANCE COVERAGE / FINANCIAL ISSUES:: [employer] CURRENT HOME/COMMUNITY SERVICES/EQUIPMENT:: Shaheed does not currently have any in-home services. He was attending outpatient physical therapy at [facility] but recently cancelled his sessions due to soreness and pain. He owns a FWW. PRIMARY CARE PHYSICIAN:: Nikky Henao NP ([facility]). POTENTIAL DISCHARGE NEEDS:: Follow up appointment with PCP and discharge plan of care. PATIENT/FAMILY EDUCATION NEEDS:: Review of discharge instructions regarding medications, activity level, and follow up plan of care. ANTICIPATED BARRIERS TO DISCHARGE:: No anticipated barriers currently. TRANSPORTATION:: Via private vehicle with spouse, Judith. PLAN:: Anticipate Shaheed will be discharged home with no new services when medically cleared by provider. He will follow up with his PCP and discharge plan of care as directed. His , Judith, will drive him home via private vehicle when ready. CM will continue to support Shaheed and any discharge needs.
--- NOTE | 2021-01-16 16:08 | PUCON_ITS ---
General Date Of Service Date of service: 01/16/21 Time of Service: 16:08 Assessment and Plan Assessment and plan (1) Pulmonary lesion: Status: Acute (2) Deep vein thrombosis (DVT) of femoral vein of left lower extremity: Status: Acute Assessment and plan: This is a 65 yo man admitted for a large left DVT s/p bilateral total hip arthroplasty. Despite the patient being compliant with ambulation and PT in addition to being on post op DVT ppx, he has developed a relatively large DVT. Luckily he does not have a PE from this clot. The pulmonary mass in the RLL may represent an inflammatory or infectious process or possibly malignancy. He does have a smoking history, however the location and appearance for a lung malignancy is somewhat atypical. In addition, this CTA is an expiratory film and so it is hard to thoroughly evaluate this lesion. We will plan for an inspiratory CT without contrast to more thoroughly evaluate this lesion. A malignancy would certainly cause a hypercoagulable state. Additionally his family history of thrombotic disease is also concerning for a potential genetic cause of his clot. Pulmonary mass - will repeat chest CT as an outpatient in 6-8 weeks - I will set up for him to be seen in my clinic shortly after this scan DVT - A/C per hospitalist service - will test for factor 5 Leiden now - no other hypercoag labs can be drawn in the setting of anticoagulation Emphysema - will obtain spirometry in my clinic at our visit Qualifiers: Chronicity: acute Qualified Code(s): I82.412 - Acute embolism and thrombosis of left femoral vein History of Present Illness Narrative: This is a 65 yo man who recently underwent bilateral anterior total hip arthoplasty on 11/06/20 who is found to have a very large left sided DVT. He was doing relatively well with exercise and keeping moving and had even undergone 3 PT visits. He states he noticed leg pain after his first visit but thought this was normal. After his next two subsequent visits he knew something was abnormal with the degree of pain he was having. He was also on DVT ppx for a month post op. There is a positive family history of clots, with his son actually succumbing to a PE at the age of 28. During a chest CT to rule out PE (no PE found) a RLL pleural adjacent mass was discovered. Pulmonary was consulted for this purpose. He states he is a former smoker, fully quitting 3 years ago (approx 40 pack years). He has not taken part in low dose chest CT scanning for lung cancer screening. He does not hold a diagnosis of any lung disease (very mild emphysematous changes on CT). 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 He denies any significant pulmonary exposures including asbestos or molds. He is not having any breathing issues at the moment. He complains of left leg pain and swelling. Review of Systems All systems reviewed & are unremarkable except as noted in HPI and below [facility] Medical History Impacted cerumen of both ears Nasal polyp Otitis externa Pain of left calf Surgical History H/O endoscopic sinus surgery Bilateral total ethmoidectomy, bilateral maxillary antrostomy, bilateral polypectomy, 2010 History of bilateral total hip arthroplasty (11/06/20) History of nasal polyp (11/29/15) Status post colonoscopy Family History Mother Skin cancer Father Skin cancer Sister Cancer Brother No problems noted. Brother No problems noted. Social History Smoking/Tobacco Use Status: Former Tobacco Use Quit Date: 04/20/06 Tobacco: How many years used: 30 Smoking risk assessment performed?: Yes Alcohol Intake: current Alcohol Intake frequency: 0-2 drinks per day Alcohol type: beer Drug use: Occasionally Substance use type: marijuana Caregiver/Support person: No Household members: spouse Housing: house Communication Needs: None Do you need help understanding health information?: Rarely Pets and animals: Yes Pets and animals: cat(s) Sexually active: Yes Do you think of yourself as: straight/heterosexual Current gender identity: male What is your relationship status?: How often do you talk on the phone with friends or family?: once per week How often do you get together with friends or relatives?: once per week Do you belong to any clubs or organized social groups?: no Panel score (0-1 are the most socially isolated patients): 1 What type of physical activity do you participate in: bicycling Duration: 15-30 minutes/day Frequency: 1-2 times per week Jackelyn/Taoist: None Special jackelyn needs: No Seatbelt use: always Drive intox or ride w/intox 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: No Do you feel safe at home: Yes Do you feel safe in your relationship?: Yes Victim of physical abuse: No Victim of emotional abuse: No Victim of sexual abuse: No Would you like helpful sources: No Visit Medication and Allergies Active Medications Generic Name Dose Route Start Last Admin Trade Name Freq PRN Reason Stop Dose Admin Acetaminophen 650 mg 01/16/21 14:40 Acetaminophen 325 Mg Tab PO Q4H PRN PRN Apixaban 10 mg 01/16/21 20:00 Apixaban 5 Mg Tab PO 01/23/21 08:31 BID STEVEN Dimethicone/Zinc Oxide 0 gm 01/16/21 14:40 Fabrizio Protect Cream 142 Gm Tube TP PRN PRN Sodium Chloride 500 mls @ 0 mls/hr 01/16/21 11:24 Saline 500ml Bag IV PRN PRN As Directed IV Miscellaneous Supplies 1 each 01/16/21 11:30 Iv Access IV DIRECTED STEVEN Iohexol 100 ml 01/16/21 12:45 01/16/21 12:44 Omnipaque 350 Mg/Ml 100 Ml Btl IJ 02/15/21 23:59 100 ml DIRECTED STEVEN Administration Montelukast Sodium 10 mg 01/17/21 08:30 Montelukast 10 Mg Tab PO DAILY STEVEN Omeprazole 40 mg 01/17/21 07:30 Omeprazole 20 Mg Capcr PO DAILY@0730 STEVEN Oxycodone HCl 5 mg 01/16/21 14:52 Oxycodone 5 Mg Tab PO Q4H PRN PRN Polyethylene Glycol 17 gm 01/16/21 14:40 Polyethylene Glycol 3350 17 Gm Packet PO DAILY PRN PRN Constipation Propranolol HCl 120 mg 01/17/21 08:30 Propranolol 60 Mg Capcr PO DAILY STEVEN Sodium Chloride 0 ml 01/16/21 11:24 Normal Saline Flush 10 Ml Syr IVP PRN PRN Sodium Chloride 50 ml 01/16/21 12:45 01/16/21 12:45 Normal Saline - Diluent 50 Ml Vial IV 50 ml .FOR DI USE STEVEN Administration Allergies aspirin Allergy (Severe, Verified 12/17/20 13:48) SWELLING NSAIDS (Non-Steroidal Anti-Inflamma Allergy (Severe, Verified 12/17/20 13:48) SWELLING Exam Const General: no acute distress Nutritional Appearance: well nourished [facility] Head: normocephalic Ears: external ears normal and no periauricular adenopathy General nose exam: nasal mucous membranes and turbinates normal Face and sinus: sinuses nontender Mouth: oropharynx normal and moist mucous membranes Teeth and gingiva: dentition normal Eyes General: appearance normal, both eyes and all related structures Pupils: PERRL Neck Neck: normal visual inspection and no lymphadenopathy Chest Chest: normal inspection of the chest Resp Effort & Inspection: normal respiratory effort Auscultation: clear to auscultation bilaterally, no rales, no rhonchi and no wheezes Cardio Rate: regular rate Rhythm: regular rhythm Heart Sounds: S1 normal, S2 normal and no murmurs Pulses: radial pulses present bilaterally GI Inspection: normal to inspection Palpation: soft Skin General skin exam: no rashes or lesions noted Neuro General: patient alert, patient awake and patient oriented x3 Extrem General: calf tenderness on the left, no clubbing, no cyanosis, edema and other (DP pulse present bilaterally and strong) Psych Mental Status: mental status grossly normal Affect: normal affect Attitude: cooperative Results Last Vital Signs Temp 36.6 C 01/16/21 11:12 Pulse 65 01/16/21 15:46 Resp 16 01/16/21 15:50 BP 113/64 01/16/21 15:31 Pulse Ox 97 01/16/21 15:50 Labs Result diagrams: 01/16/21 11:30 01/16/21 11:30 Labs: Laboratory Results - last 24 hr 01/16/21 01/16/21 01/16/21 11:30 11:30 11:30 WBC 10.81 H RBC 4.84 Hgb 14.0 Hct 43.9 MCV 90.7 MCH 28.9 MCHC 31.9 L RDW 13.2 Plt Count 307 MPV 9.9 Immature Gran % 0.5 Neutrophils % 74.8 Lymphocytes % 11.8 Monocytes % 8.0 Eosinophils % 4.3 Basophils % 0.6 Nucleated RBC % 0 Absolute Neutrophils 8.09 H Absolute Lymphocytes 1.28 Absolute Monocytes 0.86 H Absolute Eosinophils 0.46 Absolute Basophils 0.06 PT 10.8 INR 1.1 APTT Sodium 139 Potassium 4.3 Chloride 101 Carbon Dioxide 34.7 H Anion Gap 3.3 BUN 17 Creatinine 1.1 Estimated GFR/1.73 m2 >= 60.00 Glucose 99 Calcium 9.3 Magnesium 2.0 Total Bilirubin 0.5 AST 16 ALT 30 Alkaline Phosphatase 86 Troponin I < 0.05 Total Protein 7.9 Albumin 3.2 L COVID-19 Source SARS-CoV-2 (PCR) 01/16/21 01/16/21 01/16/21 12:49 14:30 14:53 WBC RBC Hgb Hct MCV MCH MCHC RDW Plt Count MPV Immature Gran % Neutrophils % Lymphocytes % Monocytes % Eosinophils % Basophils % Nucleated RBC % Absolute Neutrophils Absolute Lymphocytes Absolute Monocytes Absolute Eosinophils Absolute Basophils PT INR APTT 25.8 Sodium Potassium Chloride Carbon Dioxide Anion Gap BUN Creatinine Estimated GFR/1.73 m2 Glucose Calcium Magnesium Total Bilirubin AST ALT Alkaline Phosphatase Troponin I < 0.05 Total Protein Albumin COVID-19 Source Nasal/Nares SARS-CoV-2 (PCR) Negative
[2021-01-16] MEDS: Acetaminophen 325 MG TAB 650 MG PO (17:27)
[2021-01-16] MEDS: oxyCODONE 5 MG TAB PO (17:27)
--- NOTE | 2021-01-16 18:43 | HPE_ITS ---
Date of service: 01/16/21 Time of Service: 16:20 Assessment and Plan Assessment and plan (1) Deep vein thrombosis (DVT) of femoral vein of left lower extremity: Status: Acute Assessment and plan: Provoke secondary to hip arthroplasty? Related to the lung lesion that is potentially malignant. Dr Benavides, pulmonary medicine felt the lesion was in an area and had characteristics that made it less likely to be malignant. However, a more appropriate CT to specifically evaluate it will be performed as an outpt. Given lovenox 1mg/kg in the ED. Will initiate Eliquis 10mg po BID for 7 days starting tonight. Then 5mg BID. Pain control with prn oxycodone. Will initiate compression stocking in the AM Of note, his son, at age 28, from a pulmonary embolism after a leg injury. This was a provoked thromboembolism event. Can check patient for Factor V Leiden but other thrombophilias cannot be acc urately evaluated at this time. (2) History of bilateral total hip arthroplasty: Status: Acute Assessment and plan: Has done well with rehab. (3) Pulmonary lesion: Status: Acute Assessment and plan: Pulmonary medicine following. Previous smoker. History of Present Illness History of Present Illness Chief Complaint: Left leg pain and swelling Narrative: Rakan is a 65 yo male with a h/o bilateral total hip arthroplasty on 11/06/20, migraines. He presented to the ED after findings on an US of the left lower extremity (ordered as an outpt) of an extensive DVT. He had noted left lower extremity swelling and pain that started on the Thursday prior to admission. He was on Eliquis 1 month post-op and had continued to work with PT. He reported 6/10 pain making it difficult to stand and walk. No CP, SOA, palpitations. The [facility] US report showed an extensive DVT throughout the entire left lower extremity at and below the inguinal ligament down into an including the deep veins of the calf, as described above. CT chest/abd/pelvis showed no pulmonary emboli. There was noted a 3.7 x 1.3 cm pleural based density in the posterior basal segment of the right lower lobe which require close follow-up to rule out malignancy, particularly given the patient's recent history. No other pulmonary findings nor pleural effusions. Pulmonary consulted. He was given a dose of IV Fentanyl then hydromorphone in the ED with good pain relief while lying on the gurney. He was administered 1mg/kg SC Lovenox. Admitted for pain control. Review of Systems All systems reviewed & are unremarkable except as noted in HPI and below PFSH Medical History Impacted cerumen of both ears Nasal polyp Otitis externa Pain of left calf Surgical History H/O endoscopic sinus surgery Bilateral total ethmoidectomy, bilateral maxillary antrostomy, bilateral polypectomy, 2010 History of bilateral total hip arthroplasty (11/06/20) History of nasal polyp (11/29/15) Status post colonoscopy Family History Mother Skin cancer Father Skin cancer Sister Cancer Brother No problems noted. Brother No problems noted. Social History Smoking/Tobacco Use Status: Former Tobacco Use Quit Date: 04/20/06 Tobacco: How many years used: 30 Smoking risk assessment performed?: Yes Alcohol Intake: current Alcohol Intake frequency: 0-2 drinks per day Alcohol type: beer Drug use: Occasionally Substance use type: marijuana Caregiver/Support person: No Household members: spouse Housing: house Communication Needs: None Do you need help understanding health information?: Rarely Pets and animals: Yes Pets and animals: cat(s) Sexually active: Yes Do you think of yourself as: straight/heterosexual Current gender identity: male What is your relationship status?: How often do you talk on the phone with friends or family?: once per week How often do you get together with friends or relatives?: once per week Do you belong to any clubs or organized social groups?: no Panel score (0-1 are the most socially isolated patients): 1 What type of physical activity do you participate in: bicycling Duration: 15-30 minutes/day Frequency: 1-2 times per week Jackelyn/Confucianist: None Special jackelyn needs: No Seatbelt use: always Drive intox or ride w/intox local bulk driver: No Do you feel safe at home: Yes Do you feel safe in your relationship?: Yes Victim of physical abuse: No Victim of emotional abuse: No Victim of sexual abuse: No Would you like helpful sources: No Meds Allergies and Home Medications Allergies Allergy/AdvReac Type Severity Reaction Status Date / Time aspirin Allergy Severe SWELLING Verified 12/17/20 13:48 NSAIDS (Non-Steroidal Allergy Severe SWELLING Verified 12/17/20 13:48 Anti-Inflamma Home Medications Medication Instructions Recorded Confirmed Type fluticasone propionate 50 2 spray NS DAILY PRN inh 03/05/18 01/16/21 History mcg/actuation nasal spray,suspension cholecalciferol (vitamin D3) 1,250 50,000 unit PO weekly #8 cap 03/14/20 01/16/21 Rx mcg (50,000 unit) capsule montelukast 10 mg tablet 10 mg PO DAILY #90 tab-cap 08/16/20 01/16/21 Rx propranolol 120 mg capsule,24 120 mg PO DAILY #90 tab-cap 08/16/20 01/16/21 Rx hr,extended release omeprazole 40 mg capsule,delayed 40 mg PO DAILY #90 tab-cap 10/02/20 01/16/21 Rx release acetaminophen 500 mg PO Q6H PRN #60 tab 11/06/20 01/16/21 Rx Exam Const General: cooperative and no acute distress Nutritional Appearance: overweight Orientation: oriented x3 and other (drowsy) Eyes General: appearance normal, both eyes and all related structures Sclera: sclerae normal Pupils: PERRL Resp Effort & Inspection: normal respiratory effort Auscultation: clear to auscultation bilaterally Cardio Rate: regular rate Rhythm: regular rhythm Heart Sounds: S1 normal and S2 normal GI Palpation: soft and nontender Skin General skin exam: no rashes or lesions noted Extrem General: no pedal edema and calf tenderness on the left Left lower extremity: lower leg (generalized swelling into the foot. ) Results Labs Result diagrams: 01/16/21 11:30 01/16/21 11:30 Labs: Laboratory Results - last 24 hr 01/16/21 01/16/21 01/16/21 11:30 11:30 11:30 WBC 10.81 H RBC 4.84 Hgb 14.0 Hct 43.9 MCV 90.7 MCH 28.9 MCHC 31.9 L RDW 13.2 Plt Count 307 MPV 9.9 Immature Gran % 0.5 Neutrophils % 74.8 Lymphocytes % 11.8 Monocytes % 8.0 Eosinophils % 4.3 Basophils % 0.6 Nucleated RBC % 0 Absolute Neutrophils 8.09 H Absolute Lymphocytes 1.28 Absolute Monocytes 0.86 H Absolute Eosinophils 0.46 Absolute Basophils 0.06 PT 10.8 INR 1.1 APTT Sodium 139 Potassium 4.3 Chloride 101 Carbon Dioxide 34.7 H Anion Gap 3.3 BUN 17 Creatinine 1.1 Estimated GFR/1.73 m2 >= 60.00 Glucose 99 Calcium 9.3 Magnesium 2.0 Total Bilirubin 0.5 AST 16 ALT 30 Alkaline Phosphatase 86 Troponin I < 0.05 Total Protein 7.9 Albumin 3.2 L COVID-19 Source SARS-CoV-2 (PCR) 01/16/21 01/16/21 01/16/21 12:49 14:30 14:53 WBC RBC Hgb Hct MCV MCH MCHC RDW Plt Count MPV Immature Gran % Neutrophils % Lymphocytes % Monocytes % Eosinophils % Basophils % Nucleated RBC % Absolute Neutrophils Absolute Lymphocytes Absolute Monocytes Absolute Eosinophils Absolute Basophils PT INR APTT 25.8 Sodium Potassium Chloride Carbon Dioxide Anion Gap BUN Creatinine Estimated GFR/1.73 m2 Glucose Calcium Magnesium Total Bilirubin AST ALT Alkaline Phosphatase Troponin I < 0.05 Total Protein Albumin COVID-19 Source Nasal/Nares SARS-CoV-2 (PCR) Negative Last Vital Signs Temp 37.2 C 01/16/21 16:15 Pulse 70 01/16/21 16:15 Resp 18 01/16/21 16:15 BP 149/86 H 01/16/21 16:15 Pulse Ox 99 01/16/21 16:15 PAWSS Pt Consumed Any Amount of Alcohol Within the Last 30 days OR had positive LEIGH ANN Upon Admission: No Have you Been Recently Intoxicated or Drunk Within the Last 30 days?: No Have you Ever Experienced Previous Episodes of Alcohol Withdrawal?: No Have you ever Experienced Withdrawal Seizures?: No Have you ever Experienced Delirium Tremens(DT)s?: No Have you ever undergone Alcohol Rehabilitation Treatment (i.e, inpt ot o utpatient treatment programs)?: No Have you ever Experienced Blackouts?: No Have you ever Combined Alcohol with other Downers within the last 90 days?: No Have you ever Combined Alcohol with any other Substance of Abuse during the last 90 days?: No Positive Blood Alcohol level on Presentation? [PCS.BAL]: No Evidence of Increased Autonomic Activity (i.e. HR>120, tremor, sweating, agitation, nausea)?: No Result: 0
[2021-01-16] MEDS: Apixaban 5 MG TAB 10 MG PO (21:12)
[2021-01-17] MEDS: Normal Saline Flush 10 ML SYR IVP (05:17)
[2021-01-17 06:45] LABS: Abs Immature Grans 0.06 10^3/uL (0.0-0.06); Absolute Basophil Count 0.06 10^3/uL (0.0-0.2); Absolute Eosinophil Count 0.47 10^3/uL (0.0-0.7); Absolute Lymphocyte Count 1.29 10^3/uL (1.2-3.4); Absolute Monocyte Count 0.85 10^3/uL (0.1-0.8); Absolute Neutrophil Count 6.34 10^3/uL (1.2-6.7); Basophils % 0.7; Eosinophils % 5.2; HCT 41.1 % (40.0-50.0); HGB 13.2 g/dL (13.5-17.5); Immature Grans % 0.7; Lymphocytes % 14.2; MCH 28.7 pg (27.0-33.0); MCHC 32.1 % (32.0-36.0); MCV 89.3 fL (80-95); MPV 10.1 fL (8.0-11.0); Monocytes % 9.4; Neutrophils % 69.8; Nucleated RBC 0 %; Platelet Count 295 10^3/uL (130-400); RDW 13.2 % (11.8-14.1); RDW-SD 43.5 fL; WBC 9.07 10^3/uL (4.4-10.8)
[2021-01-17 07:42] VITALS: BP 118/80; PULSE 85; RESP 16; TEMP 37.4; O2SAT 94
[2021-01-17] MEDS: Montelukast 10 MG TAB PO (07:58)
[2021-01-17] MEDS: Propranolol 60 MG CAPCR 120 MG PO (07:58)
[2021-01-17] MEDS: Omeprazole 20 MG CAPCR 40 MG PO (07:59)
[2021-01-17] MEDS: Apixaban 5 MG TAB 10 MG PO (08:02)
[2021-01-17] MEDS: Acetaminophen 325 MG TAB 650 MG PO (08:07)
--- NOTE | 2021-01-17 09:22 | PDOC.CMDIS ---
- If Service Date Differs Date of service: 01/17/21 Time of Service: 17:02 LACE Index Scoring Tool - Questions: Length of Stay (in days): 1 Acuity (Admit via E.D.?): Yes E.D. Visits: 1 - Answers: Total Score: 5 Risk of Readmission: Low Risk Care Management Discharge Reason for Hospitalization: Deep vein thrombosis (DVT) of left lower extremity. Discharge Plan: Shaheed will be discharged home with no new services when medically cleared by provider. He will have a new eliquis prescription, CM faxed Eliquis $10 copay coupon card to [facility] to offset costs. He will follow up with his PCP and discharge plan of care as directed. His , Judith, will drive him home via private vehicle when ready. Patient/Family Education Needs: Review discharge instructions, discuss Ask Me Three.
--- NOTE | 2021-01-17 10:32 | IN_ITS ---
Date of service: 01/17/21 Time of Service: 10:32 PT Notes Visit Reasons: Deep vein thrombosis Physical Therapy Inpatient Initial Evaluation Date: 01/17/2021 Referring Doctor: Deshawn Carlton MD PT Orders: PT CONSULT: Eval/treat Precautions: Fall. Standard. Activity as tolerated. Patient Profile/Admitting Diagnosis: Shaheed is a 65-year-old male status post bilateral total hip arthroplasty on postoperative week 9 who presented to the ED on 01/16/2021 with lower extremity swelling and pain at 6/10 with resulting difficulty with walking. Patient is diagnosed with deep venous thromboses of the left femoral vein and pulmonary lesion. PMHX: Medical History Impacted cerumen of both ears Nasal polyp Otitis externa Pain of left calf Surgical History H/O endoscopic sinus surgery Bilateral total ethmoidectomy, bilateral maxillary antrostomy, bilateral polypectomy2010 History of bilateral total hip arthroplasty (11/06/20) History of nasal polyp (11/29/15) Status post colonoscopy Social History/Home Situation: Social History/Home Situation: Lives with in a private home with no steps to enter. has respiratory compromise but will be able to provide support with minimal preparation and light house chores. Patient is independent with all aspects of ADLs prior to surgery without an assistive device. Has a stair lift installed to the second floor of the house per their bedroom is. Plans on staying on the first floor for the first few days in case of pain gets in the way. 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 Equipment Owned/DME: Walk-in shower with seat, FWW Subjective: Agreeable to PT consult. Feels a lot better today. Objective: General Observation: Non-pitting radha thony L LE Mental Status: Alert and oriented as to person, place, time, and purpose. Able to pay attention, focus, and respond appropriately. Pain: 5/10 in L LE ROM: Right Upper Extremity: Shoulder Flexion WFL. Shoulder abduction WFL. Elbow flexion WFL. Wrist flexion WFL. Functional opening and closing of hand WFL. Left Upper Extremity: Shoulder Flexion WFL. Shoulder abduction WFL. Elbow flexion WFL. Wrist flexion WFL. Functional opening and closing of hand WFL. Right Lower Extremity: Hip flexion WFL. Hip abduction WFL. Knee flexion WFL. Ankle dorsiflexion WFL. Ankle plantarflexion WFL. Left Lower Extremity: Limited ability to lift whole leg onto bed needing minimal assit from PT. Able to partially adduct leg onto midline but with pain. Knee flexion WFL. Ankle dorsiflexion WFL. Ankle plantarflexion WFL. Strength: Right Upper Extremity: Shoulder flexors 5/5. Shoulder abductors 5/5. Elbow flexors 5/5. Elbow extensors 5/5. 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 Left Upper Extremity: Shoulder flexors 5/5. Shoulder abductors 5/5. Elbow flexors 5/5. Elbow extensors 5/5. 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 Right Lower Extremity: Hip flexors 5/5. Hip abductors 5/5. Knee flexors 5/5. Knee extensors 5/5. Ankle dorsiflexors 5/5. Ankle plantarflexors 5/5. Left Lower Extremity: Hip flexors 3-/5. Hip abductors 3-/5. Knee flexors 4-/5. Knee extensors 4-/5. Ankle dorsiflexors 4/5. Ankle plantarflexors 4/5. Bed Mobility/Transfers: Rolling supervision Supine to sit supervision Sit to supine minimal assist to left LE Sit to stand supervision Stand to sit supervision Bed to reclining chair supervision Reclining chair to bed supervision Gait: Instructed patient with level surface ambulation of 250 feet requiring standby assist. Meggan decreased but no LE. Step height on the left decreased. Step length on the left decreased. Reported 5/10 pain in the left LE but no report of chest pain. No LOB. Balance: Static Sitting: Normal Dynamic Sitting: Normal Static Standing: Fair Dynamic Standing: Fair Special Tests: Mobility Limitations Standardized Measure [facility] AM-PAC 6 clicks Basic Mobility Inpatient Short Form: Raw Score: 23 CMS Score: 11% deficit Informed Consent/Education: Patient was instructed in purpose of PT consult and plan of care. Agreeable to proceed with established PT POC to achieve personal goals. Assessment: Patient only requires assistance with breathing left leg up to bed but was able to manage all other mobility assessment tasks without any difficulty. Pain level only 5/10 that resolved with rest. Patient may resume outpatient PT services to achieve highest functional level. Patient presents with clinical signs and symptoms consistent with current/admitting diagnoses that have resulted to mobility limitations, gait instability, generalized weakness, and overall ADL decline as demonstrated by the following impairment level findings: 1. Decreased strength to left LE major muscle groups 2. Impaired standing balance 3. Impaired activity tolerance 4. Limitation of joint range of motion in left hip 5. Shortness of breath 6. Swelling in left LE Impairments are contributing to the following functional limitations: 1. Decline in bed mobility skills 2. Decline in transfer skills 3. Difficulty with ambulation without assistive device 4. Increased completion time for mobility ADL performance 5. Increased risk for falls Patient is assessed as a [id number] moderate complexity based on the following: History: 65-year-old male with past medical history as indicated above Examination: Demonstrable impairment in strength, balance, and mobility level with underlying impairments and functional limitations as exhibited above as well as deficit score of 23% utilizing the [facility] Mobility Inpatient Short Form Presentation: Stable Decision Makin moderate complexity Goals: N/A. PT evaluation and 1 treatment session only. Plan of Care/Treatment Plan: N/A. PT evaluation and 1 treatment session only. DISCHARGE RECOMMENDATIONS: Resume outpatient PT services in order to achieve highest functional mobility level using the least restrictive ambulatory device. TREATMENT CODE/TIME: 7162 x 20 minutes, 42030 x 12 minutes beginning at 10:32 AM. Thank you for the opportunity to participate in the care of this patient. Magda Woody PT, DPT, CLT [facility] [place], [place]
--- NOTE | 2021-01-17 11:13 | W.PM.DS.N ---
Date of service: 01/17/21 Time of Service: 11:14 DS: Diagnosis Discharge Diagnosis (1) Pulmonary lesion: Status: Acute (2) Deep vein thrombosis (DVT) of femoral vein of left lower extremity: Status: Acute Discharge Plan Disposition Patient Disposition: HOME Condition: Stable Discharge Details Reason For Visit: DVT Admit Date/Time: 01/16/21 15:46 Admit Provider: Deshawn Carlton Attending Provider: Deshawn Carlton [facility] Hospital Course: This is a 65 yo male with a h/o bilateral total hip arthroplasty on 11/06/20, migraines. He presented to the ED after findings on an US of the left lower extremity (ordered as an outpt) of an extensive DVT. He had noted left lower extremity swelling and pain that started on the Thursday prior to admission. He was on Eliquis 1 month post-op and had continued to work with PT. He reported 6/10 pain making it difficult to stand and walk. No CP, SOA, palpitations. The [facility] US report showed an extensive DVT throughout the entire left lower extremity at and below the inguinal ligament down into an including the deep veins of the calf, as described above. CT chest/abd/pelvis showed no pulmonary emboli. There was noted a 3.7 x 1.3 cm pleural based density in the posterior basal segment of the right lower lobe which require close follow-up to rule out malignancy, particularly given the patient's recent history. No other pulmonary findings nor pleural effusions. Pulmonary consulted. He was given a dose of IV Fentanyl then hydromorphone in the ED with good pain relief while lying on the gurney. He was administered 1mg/kg SC Lovenox. Admitted for pain control and anticoagulation treatment. Lovenox stopped and Eliquis initiated for DVT treatment: 10mg BID for 7 days, then 5mg BID. He ambulated with PT; pain improved after taking tylenol prior to PT. Oxycodone used intermittently with good pain control. He will begin wearing a SUSHILA compression stocking, knee high, on the left leg tomorrow. F/U with PCP in 1-2 weeks. Home Meds and New Rx's Prescriptions: New Eliquis 5 mg Tablet See Rx Instructions .ROUTE .COMPLEX Qty: 72 RF: 0 oxycodone 5 mg Tablet 5 mg PO Q4H PRN PRNQty: 15 RF: 0 Continued fluticasone propionate 50 mcg/actuation spray,suspension 2 spray NS DAILY PRN (Reason: allergy symptoms) RF: 0 cholecalciferol (vitamin D3) 1,250 mcg (50,000 unit) capsule 50,000 unit PO weekly Qty: 8 RF: 4 propranolol 120 mg capsule,extended release 24 hr 120 mg PO DAILY Qty: 90 RF: 4 montelukast 10 mg tablet 10 mg PO DAILY Qty: 90 RF: 4 omeprazole 40 mg capsule,delayed release(DR/EC) 40 mg PO DAILY Qty: 90 RF: 3 acetaminophen 500 mg tablet 500 mg PO Q6H PRN (Reason: pain) Qty: 60 RF: 2 Discharge Instructions Instructions: Apixaban (By mouth), Deep Vein Thrombosis (DC) Activity:: Activity as Tolerated Equipment/Supplies:: Left SUSHILA hose Diet:: Resume usual diet Discharge Orders Discharge Orders: Discharge Order (Routine); Ordered 01/17/21 Ordered By: Deshawn Carlton DS: Summary Time Spent with Patient providing and/or coordinating discharge services: Greater than 30 minutes Status at Discharge Functional status at discharge: independent ambulation Overall status at discharge: patient is progressing back to baseline Mental Status: mental status grossly normal Speech and Movement: speech and movement normal Mood: congruent mood Affect: normal affect Exam Const General: cooperative and no acute distress Nutritional Appearance: overweight Orientation: oriented x3 and other (drowsy) Eyes General: appearance normal, both eyes and all related structures Sclera: sclerae normal Pupils: PERRL Resp Effort & Inspection: normal respiratory effort Auscultation: clear to auscultation bilaterally Cardio Rate: regular rate Rhythm: regular rhythm Heart Sounds: S1 normal and S2 normal GI Palpation: soft and nontender Skin General skin exam: no rashes or lesions noted Extrem General: no pedal edema and calf tenderness on the left Left lower extremity: lower leg (generalized swelling into the foot. ) Psych Mental Status: mental status grossly normal Speech and Movement: speech and movement normal Mood: congruent mood Affect: normal affect DS: Data Vitals/I&O Vitals and I&O: Vital Signs Temperature 37.4 C 01/17/21 07:42 Temperature Source Tympanic 01/17/21 07:42 Pulse 85 01/17/21 07:42 Pulse Rhythm Regular 01/17/21 07:45 Pulse 78 01/16/21 15:50 Respiratory Rate 16 01/17/21 07:42 Respiratory Effort Non-Labored 01/17/21 07:45 Respiratory Depth Normal 01/17/21 07:45 Respiratory Pattern Normal 01/17/21 07:45 Blood Pressure 118/80 01/17/21 07:42 Blood Pressure Mean 74 01/16/21 15:46 Blood Pressure Position Sitting 01/16/21 11:12 Pulse Oximetry 94 01/17/21 07:42 Oxygen Delivery Method Room Air 01/17/21 07:42 Oxygen Flow Rate 0 01/17/21 07:42 Pain Level 3 01/17/21 08:07 Intake & Output 01/16/21 01/16/21 01/17/21 11:59 23:59 11:59 Intake Total 250 / 250 10 / 10 Output Total 200 / 200 100 / 100 Balance 50 / 50 -90 / -90 Weight 92.986 kg Intake: IV 10 / 10 Oral 250 / 250 Output: Urine 200 / 200 100 / 100 Other: Urine Color Yellow Dark Aliya Urine Appearance Clear Clear Urine Odor None Comment Pt voided independently to toilet. Voiding Methods Toilet Toilet Data Completed and Pending Labs on day of discharge: Labs from last 24 hours 01/17/21 01/16/21 01/16/21 06:28 14:53 14:30 WBC 9.07 RBC 4.60 Hgb 13.2 L Hct 41.1 MCV 89.3 MCH 28.7 MCHC 32.1 RDW 13.2 Plt Count 295 MPV 10.1 Immature Gran % 0.7 Neutrophils % 69.8 Lymphocytes % 14.2 Monocytes % 9.4 Eosinophils % 5.2 Basophils % 0.7 Nucleated RBC % 0 Absolute Neutrophils 6.34 Absolute Lymphocytes 1.29 Absolute Monocytes 0.85 H Absolute Eosinophils 0.47 Absolute Basophils 0.06 PT INR APTT Factor V Leiden Mutat Factor V Leiden Interp Fact V Leiden Review By Sodium Potassium Chloride Carbon Dioxide Anion Gap BUN Creatinine Estimated GFR/1.73 m2 Glucose Calcium Magnesium Total Bilirubin AST ALT Alkaline Phosphatase Troponin I < 0.05 Total Protein Albumin COVID-19 Source Nasal/Nares SARS-CoV-2 (PCR) Negative 01/16/21 01/16/21 01/16/21 12:49 11:30 11:30 WBC RBC Hgb Hct MCV MCH MCHC RDW Plt Count MPV Immature Gran % Neutrophils % Lymphocytes % Monocytes % Eosinophils % Basophils % Nucleated RBC % Absolute Neutrophils Absolute Lymphocytes Absolute Monocytes Absolute Eosinophils Absolute Basophils PT 10.8 INR 1.1 APTT 25.8 Factor V Leiden Mutat Pending Factor V Leiden Interp Pending Fact V Leiden Review By Pending Sodium Potassium Chloride Carbon Dioxide Anion Gap BUN Creatinine Estimated GFR/1.73 m2 Glucose Calcium Magnesium Total Bilirubin AST ALT Alkaline Phosphatase Troponin I Total Protein Albumin COVID-19 Source SARS-CoV-2 (PCR) 01/16/21 01/16/21 11:30 11:30 WBC 10.81 H RBC 4.84 Hgb 14.0 Hct 43.9 MCV 90.7 MCH 28.9 MCHC 31.9 L RDW 13.2 Plt Count 307 MPV 9.9 Immature Gran % 0.5 Neutrophils % 74.8 Lymphocytes % 11.8 Monocytes % 8.0 Eosinophils % 4.3 Basophils % 0.6 Nucleated RBC % 0 Absolute Neutrophils 8.09 H Absolute Lymphocytes 1.28 Absolute Monocytes 0.86 H Absolute Eosinophils 0.46 Absolute Basophils 0.06 PT INR APTT Factor V Leiden Mutat Factor V Leiden Interp Fact V Leiden Review By Sodium 139 Potassium 4.3 Chloride 101 Carbon Dioxide 34.7 H Anion Gap 3.3 BUN 17 Creatinine 1.1 Estimated GFR/1.73 m2 >= 60.00 Glucose 99 Calcium 9.3 Magnesium 2.0 Total Bilirubin 0.5 AST 16 ALT 30 Alkaline Phosphatase 86 Troponin I < 0.05 Total Protein 7.9 Albumin 3.2 L COVID-19 Source SARS-CoV-2 (PCR) [facility] Medical History Impacted cerumen of both ears Nasal polyp Otitis externa Pain of left calf Surgical History H/O endoscopic sinus surgery Bilateral total ethmoidectomy, bilateral maxillary antrostomy, bilateral polypectomy, 2010 History of bilateral total hip arthroplasty (11/06/20) History of nasal polyp (11/29/15) Status post colonoscopy Family History Mother Skin cancer Father Skin cancer Sister Cancer Brother No problems noted. Brother No problems noted. Social History Smoking/Tobacco Use Status: Former Tobacco Use Quit Date: 04/20/06 Tobacco: How many years used: 30 Smoking risk assessment performed?: Yes Alcohol Intake: current Alcohol Intake frequency: 0-2 drinks per day Alcohol type: beer Drug use: Occasionally Substance use type: marijuana Caregiver/Support person: No Household members: spouse Housing: house Communication Needs: None Do you need help understanding health information?: Rarely Pets and animals: Yes Pets and animals: cat(s) Sexually active: Yes Do you think of yourself as: straight/heterosexual Current gender identity: male What is your relationship status?: How often do you talk on the phone with friends or family?: once per week How often do you get together with friends or relatives?: once per week Do you belong to any clubs or organized social groups?: no Panel score (0-1 are the most socially isolated patients): 1 What type of physical activity do you participate in: bicycling Duration: 15-30 minutes/day Frequency: 1-2 times per week Jackelyn/Hinduism: None Special jackelyn needs: No Seatbelt use: always Drive intox or ride w/intox stage driver: No Do you feel safe at home: Yes Do you feel safe in your relationship?: Yes Victim of physical abuse: No Victim of emotional abuse: No Victim of sexual abuse: No Would you like helpful sources: No
[2021-01-23 10:29] LABS: Factor V Leiden(R506Q) Mut Negative (Negative)
== END 2021-01-17 13:16 | disposition home or self-care (01) ==
LOC: ER 15:43 → MS 15:57
PROVIDERS: Student in an Organized Health Care Education/Training Program; Admitting Provider Family Medicine; Emergency Provider Registered Nurse Emergency; PCP Nurse Practitioner; Visit Provider Family Medicine
DX: I82.412 Acute embolism and thrombosis of left femoral vein (principal); Z96.643 Presence of artificial hip joint, bilateral; R91.1 Solitary pulmonary nodule; Z87.891 Personal history of nicotine dependence; G43.909 Migraine, unspecified, not intractable, without status migrainosus; Z20.822 Contact with and (suspected) exposure to COVID-19
CPT/HCPCS: 36415; 71275; 74177; 80053; 81241; 87635; 93005; 96372; 96374; 96375; 97162; 97530; 99285; 83735; 84484; 85025; 85610; 85730; 93010; 99217; 99219; G0378; J1650; J2405; J3010; J3490

== ENCOUNTER 2021-03-25 03:05 | Outpatient (CLI) | payer BC, SELFPAY ==
[2021-03-25 12:07] LABS: ALT 25 U/L (16-63); AST 16 U/L (15-37); Albumin 3.7 g/dL (3.4-5.0); Alkaline Phosphatase 95 U/L (46-116); Anion Gap 4.9 mmol/L (3-11); BUN 24 mg/dL (7-18); Bilirubin, Total 0.4 mg/dL (0.2-1.0); CO2 33.1 mmol/L (21.0-32.0); CREATININE 1.1 mg/dL (0.70-1.30); Calcium 8.8 mg/dL (8.5-10.1); Calculated LDL 69 mg/dL (<100); Chloride 103 mmol/L (98-107); Cholesterol 129 mg/dL (<200); Glucose 86 mg/dL (74-106); HDL Cholesterol 48 mg/dL (40-60); Potassium 3.9 mmol/L (3.5-5.1); Sodium 141 mmol/L (136-145); Triglyceride 64 mg/dL (<150)
[2021-03-25 12:23] LABS: Vitamin D 25 Total 62.8 ng/mL (30-100)
[2021-03-25 17:39] LABS: PSA, Screening 1.2 ng/mL (0.0-4.5)
[2021-03-26 10:14] LABS: Hepatitis C Ab w Rflx HCV PCR Negative (Negative)
== END 2021-03-25 03:06 | disposition home or self-care (01) ==
LOC: LBO 03:05
PROVIDERS: PCP Family Medicine; Visit Provider Family Medicine
DX: I10 Essential (primary) hypertension (principal); Z00.00 Encounter for general adult medical examination without abnormal findings
CPT/HCPCS: 36415; 80053; 80061; 82306; 84153; 86803

== ENCOUNTER 2021-08-26 18:26 | Outpatient (REF) | payer BC, SELFPAY | END 2021-08-26 18:27 | disposition home or self-care (01) | LOC: LBN 18:26 | PROVIDERS: PCP Nurse Practitioner Family; Visit Provider Physician Assistant | DX: L98.8 Other specified disorders of the skin and subcutaneous tissue (principal) | CPT/HCPCS: 87077; 87070; 87186; 87205 ==

== ENCOUNTER 2021-09-12 11:11 | Outpatient (CLI) | payer BC, SELFPAY ==
--- NOTE | 2021-09-12 10:45 | DI.RAD_ITS ---
Exam(s) XR FINGER LT LITTLE EXAM: XR FINGER LT LITTLE EXAM DATE/TIME: CLINICAL HISTORY: left little finger cyst. TECHNIQUE: 2D digital imaging was performed of the left finger. Three views were obtained. PA/AP, oblique, and lateral views were obtained. COMPARISON: None. FINDINGS: BONES: No acute fracture is present. No bony destructive lesion is seen. JOINTS: No dislocation is present. SOFT TISSUE: Normal. No soft tissue calcification is appreciated. IMPRESSION: No bone or joint abnormality is identified. DATA REPOSITORY: RADIATION DOSE DELIVERED:
== END 2021-09-12 11:12 | disposition home or self-care (01) ==
LOC: DIORS 11:12
PROVIDERS: PCP Nurse Practitioner Family; Visit Provider Nurse Practitioner Family
DX: M79.645 Pain in left finger(s) (principal); L72.8 Other follicular cysts of the skin and subcutaneous tissue
CPT/HCPCS: 73140

== ENCOUNTER → 2021-10-25 00:55 | Outpatient (CLI) | payer BC, SELFPAY ==
--- NOTE | 2021-10-25 08:45 | DI.MRI_ITS ---
Exam(s) MR UPPER EXTREMITY LT WO CLINICAL HISTORY: PAIN,mass finger of lt hand, r22.32. TECHNIQUE: Multiplanar multisequence MRI Examination was performed. CONTRAST MATERIAL: Noncontrast COMPARISON: Plain films 12 Sep 2021 FINDINGS: Bones: There is no fracture or contusion pattern. No bone marrow edema is present Musculotendinous structures: There is no muscular edema, myositis or focal collection. No muscular in jury. No tendon disruption. Soft tissues: A marker was placed adjacent to the mass of the little finger there is a soft tissue ma ss at the level of the middle phalanx at the radial aspect measuring 13 x 5 by 9 millimeters. It is l ow signal on T1 weighted images and mildly increased signal on T2 weighted images. It does not appear to represent a simple cyst. It could represent a giant cell tumor of the tendon sheath. Malignancy i s not excluded. 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 No bony abnormality is seen. DATA REPOSITORY:
== END ==
PROVIDERS: PCP Nurse Practitioner Family; Visit Provider Student in an Organized Health Care Education/Training Program
DX: R22.32 Localized swelling, mass and lump, left upper limb (principal); M79.642 Pain in left hand; M79.89 Other specified soft tissue disorders
CPT/HCPCS: 73218

== ENCOUNTER → 2021-10-28 12:31 | Outpatient (CLI) | payer BC, SELFPAY ==
--- NOTE | 2021-10-28 12:15 | DI.RAD_ITS ---
Exam(s) XR CHEST 2V PA LATERAL EXAM: XR CHEST 2V PA LATERAL CLINICAL HISTORY: dyspnea non resolving after antibiotics, R06.00. TECHNIQUE: 2D digital imaging was performed. COMPARISON: CR RIGHT RIBS TO INCLUDE CXR from 04/27/2012 FINDINGS: 2 views: Heart size is normal. The mediastinum is not widened. Lungs are clear. No infiltrates nor pleural effusions. IMPRESSION: No acute pulmonary findings. DATA REPOSITORY: RADIATION DOSE DELIVERED:
== END ==
PROVIDERS: PCP Nurse Practitioner Family; Visit Provider Student in an Organized Health Care Education/Training Program
DX: R06.00 Dyspnea, unspecified (principal); Z79.2 Long term (current) use of antibiotics
CPT/HCPCS: 71046

== ENCOUNTER 2021-11-07 10:53 | Outpatient (CLI) | payer BC, SELFPAY ==
--- NOTE | 2021-11-07 09:45 | DI.RAD_ITS ---
Exam(s) XR HIP LT COMPLETE AP PELVIS EXAM: XR HIP LT COMPLETE AP PELVIS CLINICAL HISTORY: annual f/u BILAT ROBERT. TECHNIQUE: 2D digital imaging was performed. COMPARISON: Prior x-rays 12/07/2020 FINDINGS: Two views Bilateral hip prostheses noted. No fractures. No loosening. Additional view of left hip-lateral vi ew reveals no additional new findings. IMPRESSION: Stable appearance. No fracture or loosening evident. DATA REPOSITORY: RADIATION DOSE DELIVERED:
--- NOTE | 2021-11-07 09:45 | DI.RAD_ITS ---
Exam(s) XR HIP RT 1V EXAM: XR HIP RT 1V CLINICAL HISTORY: ANNUAL F/U BILAT ROBERT. TECHNIQUE: 2D digital imaging was performed. COMPARISON: No exams were available for comparison FINDINGS: Single view lateral view Stable position alignment of the components of the right hip prosthesis. No fracture or loosening. IMPRESSION: DATA REPOSITORY: RADIATION DOSE DELIVERED:
== END 2021-11-07 10:54 | disposition home or self-care (01) ==
LOC: DIORS 10:54
PROVIDERS: PCP Nurse Practitioner Family; Referring Provider Nurse Practitioner Family; Visit Provider Student in an Organized Health Care Education/Training Program
DX: Z96.643 Presence of artificial hip joint, bilateral (principal)
CPT/HCPCS: 73501; 73502

== ENCOUNTER → 2022-03-05 02:11 | Outpatient (CLI) | payer MEDICARE, SELFPAY ==
--- NOTE | 2022-03-05 15:19 | DI.CTLCSR_ITS ---
Exam(s) CT CHEST LUNG CANCER SCREEN EXAM: CT CHEST LUNG CANCER SCREEN CLINICAL HISTORY: Screening for lung cancer,FORMER SMOKER,Z87.891 TECHNIQUE: Imaging Protocol: Axial computed tomography images with coronal and sagittal reformatted images were created and reviewed. Low dose screening protocol. COMPARISON: CT CT CHEST PE ABD PELVIS W from 01/16/[address] CHEST WO from 03/11/2021 CR XR CHEST 2V PA LATERAL from 10/28/2021 FINDINGS: Tracheobronchial tree: No bronchiectasis or mucus plugging.. Mediastinum and Amelia: No dominant adenopathy or fluid collection. Pulmonary parenchyma: No consolidation or dominant measurable mass. Minimal emphysematous changes. Lung Nodules: None. Pleura: No effusion. No pneumothorax. Heart: The heart is not dilated. No coronary artery calcifications are seen. Aorta: Thoracic aorta non-dilated. Upper abdomen: Unremarkable. Bones: Flowing disc osteophytes. No compression fractures. Soft Tissues: Unremarkable. IMPRESSION: No suspicious pulmonary nodules. Lung RADS Cat 1 - Negative: No nodules and definitely benign nodules Lung-RADS 1.0 CATEGORIES: Category 0 - Prior chest CT exam(s) being located for comparison. Category 1 - Annual screening in 12 months. No nodules or definitely benign nodules. Category 2 - Annual screening in 12 months. Benign appearance. Nodules with low likelihood of becomin g active cancer. Category 3 - 6-month follow-up. Probably benign. Short-term follow-up suggested. Nodules with low lik elihood of becoming active cancer. Category 4A - 3-month follow-up and CT/PET if >8 mm in size. Suspicious finding. Findings which requi re additional testing. Category 4B - Findings which require additional testing and tissue sampling. Category 4X - Category 3 or 4 nodules with additional features or imaging findings that increases the suspicion of malignancy. Modifier S- Potentially clinically significant findings (non lung cancer) RADIATION DOSE DELIVERED: Total DLP !Error CTDIvol DATA REPOSITORY: All CT scans at this facility are submitted to the National Radiology Data Registry (NRDR) Dose Index Registry (DIR) with the [employer] (ACR). RADIATION OPTIMIZATION: All CT scans at this facility use at least one of these dose optimization te chniques: automated exposure control; mA and/or kV adjustment per patient size (includes targeted exa ms where dose is matched to clinical indication); or iterative reconstruction.
== END ==
PROVIDERS: PCP Nurse Practitioner Family; Visit Provider Student in an Organized Health Care Education/Training Program
DX: Z87.891 Personal history of nicotine dependence (principal); Z12.2 Encounter for screening for malignant neoplasm of respiratory organs
CPT/HCPCS: 71271

== ENCOUNTER 2022-04-18 09:58 | Day surgery (SDC) | payer MEDICARE, SELFPAY ==
--- NOTE | 2022-04-18 09:25 | PDOC.DSDIS_ITS ---
Date of service: 04/18/22 Time of Service: 11:17 Discharge Plan Disposition Patient Disposition: Home Condition: Good Discharge Details Reason For Visit: Excisional biopsy of left little finger Attending Provider: Marcel Hopkins Primary Care Provider: Mark Adams Home Meds and New Rx's Prescriptions: New acetaminophen 500 mg tablet 500 mg PO Q6H PRN (Reason: pain) Qty: 60 2RF hydrocodone-acetaminophen 5-325 mg tablet 1 tab PO Q6H PRN (Reason: severe pain) Qty: 6 0RF Rx Instructions: Take one tablet up to every 6 hours as needed for severe postoperative pain Continued fexofenadine 180 mg tablet 180 mg PO DAILY fluticasone propionate 50 mcg/actuation spray,suspension 2 spray NS DAILY PRN (Reason: allergy symptoms) montelukast 10 mg tablet 10 mg PO DAILY Qty: 90 4RF propranolol 120 mg capsule,extended release 24 hr 120 mg PO DAILY Qty: 90 4RF omeprazole 40 mg capsule,delayed release(DR/EC) 40 mg PO DAILY Qty: 90 3RF Stiolto Respimat 2.5-2.5 mcg/actuation mist 2 puff inhalation DAILY Qty: 12 1RF albuterol sulfate [Ventolin HFA] 90 mcg/actuation HFA aerosol inhaler 2 puff inhalation Q6H PRN (Reason: shortness of breath or wheezing) Qty: 54 1RF fluticasone propionate [Flovent HFA] 110 mcg/actuation HFA aerosol inhaler 2 puff inhalation BID Qty: 3 12RF Rx Instructions: 3 month supply please triamcinolone acetonide 0.1 % ointment 1 applic topical BID PRN mupirocin 2 % ointment 1 applic topical TID PRN Discontinued acetaminophen 500 mg tablet 500 mg PO Q6H PRN (Reason: pain) Qty: 60 2RF Discharge Instructions Additional Instructions: Activity:?You should keep the hand elevated as much as possible for the first few days.? You may use the other fingers as tolerated but avoid trying to do too much too soon.? You may perform light activities as soon as you feel ready.? Dressing/Cast:?Your dressing should stay in place for 2 full days.? After this, you may remove it and cover with a bandaid.? It may get wet after that time.? Medications: - You should take Tylenol for baseline pain control. - You have also been prescribed a narcotic, Hydrocodone, to take as needed for breakthrough pain. - You may also apply ice as needed. Follow-up:?7 days Referrals: Marcel Hopkins MD [ [facility] STAFF PHYSICIAN] - Activity:: Elevate Remove Dressings/Wound Care:: 48 hours Shower/Bathe:: 48 hours Diet:: As Tolerated Discharge Orders Discharge Orders: Discharge Order (Routine); Ordered 04/18/22 Ordered By: Susan Walters
[2022-04-18 10:00] VITALS: BP 135/84; PULSE 60; RESP 18; TEMP 36.6; O2SAT 98
--- NOTE | 2022-04-18 12:34 | SKI_PTH ---
PATIENT: Shaheed Mcdowell LOC: [facility] U#:[id number] AGE/SX: 66/M ROOM: RE04/18/[address]: Marcel Hopkins MD : [id number] BED: DIS: 04/18/2022 SPEC #: [id number] RECD: 04/18/22 13:24 STATUS: JADEN REQ #: [id number] JOANNE: 04/18/22 12:[address]: Marcel Hopkins DEPT: Surgical Specimen RECD BY: Susie Castaneda ENTERED: 04/18/22 13:25 SP TYPE: SKI OTHR DR: Mark Adams, TRUCK SPOTTER Tissues: 1 - SKIN BIOPSY(SHAVE/PUNCH) Procedures: GROSS AND MICRO LEVEL 3 Comments: [id number]
[2022-04-18 12:53] VITALS: BP 152/89; PULSE 48; RESP 16; TEMP 36.5; O2SAT 98
--- NOTE | 2022-04-18 16:17 | W.PM.OP ---
Date of service: 04/18/22 Time of Service: 12:50 Operative Note Operative Note DATE OF PROCEDURE: 04/18/22 PRE-OP DIAGNOSIS: Left Little Finger Mass POST-OP DIAGNOSIS: same PROCEDURE: Excision of Left Little Finger Mass SURGEON: Marcel Hopkins ANESTHESIA TYPE: Local By Surgeon Refer to Anesthesia Record ESTIMATED BLOOD LOSS: 5 PATHOLOGY: other (left little finger mass) COMPLICATIONS: None Patient was transported to: same day Patient's condition: stable Indications: I have seen Shaheed in clinic for a mass about the left little finger. Given its presence and pain, I recommended proceeding with an excisional biopsy/removal of the mass. I reviewed the risks of the procedure to include, but not limited to, bleeding, infection, pain, stiffness, incomplete resection, damage to nerves or vessels, recurrence. Despite these risks, the patient elected to proceed. Findings: There was a dense fibrous mass about the radial aspect of the little finger which had some extension proximally and distally. This was resected and sent to pathology. Procedure Description: Shaheed was greeted in the preoperative holding area where the correct side was identified and marked. The consent was reviewed with the patient and signed. All questions were answered. He was taken back to the operating room. The patient was placed into the supine position on the operating room table with the left arm on an arm board. All bony prominences were well padded. No prophylactic antibiotics were administered since this was a clean, elective hand surgical case. The left arm was then prepped with Chloraprep and draped in a standard fashion with stockinette and extremity drape. A timeout to confirm correct identity, side and site, procedure, allergies, anesthesia, and medical concerns was performed. Local anestesia digital block consisting of 1% lidocaine buffered with sodium bicarbonate. Once the digital block and set up completely, the case was begun. A Kam type incision was made over the radial?volar aspect of the little finger centered on the middle phalanx. This incision was taken down sharply the skin. Blunt dissection was used to separate the soft tissues to expose the mass. The mass was used identifiable superficial within the finger. It was dissected from surrounding soft tissues. There was a dense mass which had some extension proximally and distally. The extensions proximally and distally were reminescent of a Dupuytren's contracture. Once it was followed distally and proximally this was transected and elevated and removed from the wound. This was sent to pathology. There is no significant bleeding. The finger is warm and well perfused without signs of neurovascular injury. The wound was then irrigated and the skin was closed with a 4-0 Nylon. This was dressed with gauze and a Conform dressing. The patient tolerated the procedure well and was returned to the Same Day Surgery area in a stable condition suffering no known complication.
== END 2022-04-18 13:20 | disposition home or self-care (01) ==
PROVIDERS: PCP Nurse Practitioner Family; Visit Provider Student in an Organized Health Care Education/Training Program
PROC: (CPT 26111; principal; 2022-04-18 12:30)
DX: R22.32 Localized swelling, mass and lump, left upper limb (principal)
CPT/HCPCS: 26111; 88304; 88305

== ENCOUNTER → 2022-04-28 14:50 | Outpatient (BNVA) | payer MEDICARE, SELFPAY | PROVIDERS: PCP Nurse Practitioner Family; Referring Provider Nurse Practitioner Family; Visit Provider Student in an Organized Health Care Education/Training Program | DX: Z47.89 Encounter for other orthopedic aftercare (principal); M72.0 Palmar fascial fibromatosis [Dupuytren] ==

== ENCOUNTER 2022-10-09 02:26 | Outpatient (CLI) | payer MEDICARE, SELFPAY ==
[2022-10-09] MEDS: Albuterol HFA 18 GM 200 PUFF INH IH (16:04)
[2022-10-09] MEDS: Inhaler, Assist Device 1 EACH MC (16:05)
--- NOTE | 2022-10-10 15:34 | W.PFT ---
Date of service: 10/09/22 Time of Service: 15:07 Pulmonary Function Test Result Indications: COPD Interpretation Spirometry: There is moderate airflow limitation. There is no significant bronchodilator response. Lung Volumes: There is air trapping. Diffusion Capacity: Normal diffusion. Airway Pressure: Normal airways resistance. Impression Moderate airflow obstruction with air trapping and a normal diffusion. Note: As compared to 09/08/22, lung function is significantly improved, likely 09/08/22 test is incorrect. Clinical Correlation therefore is recommended.
== END 2022-10-09 02:27 | disposition home or self-care (01) ==
LOC: RT 02:26
PROVIDERS: PCP Nurse Practitioner Family; Visit Provider Student in an Organized Health Care Education/Training Program
DX: J44.9 Chronic obstructive pulmonary disease, unspecified (principal)
CPT/HCPCS: 94060; 94726; 94729

== ENCOUNTER → 2023-03-11 13:14 | Outpatient (BNVA) | payer MEDICARE, SELFPAY | PROVIDERS: PCP Nurse Practitioner Family; Referring Provider Nurse Practitioner Family; Visit Provider Physician Assistant Surgical | DX: J44.9 Chronic obstructive pulmonary disease, unspecified (principal); Z79.51 Long term (current) use of inhaled steroids; Z87.891 Personal history of nicotine dependence | CPT/HCPCS: 99213 ==

== ENCOUNTER → 2023-04-09 02:01 | Outpatient (CLI) | payer MEDICARE, SELFPAY ==
--- NOTE | 2023-04-09 08:00 | DI.CTLCSR_ITS ---
Exam(s) CT CHEST LUNG CANCER SCREEN EXAM: CT CHEST LUNG CANCER SCREEN CLINICAL HISTORY: Screening for lung cancer,former smoker, z87.891 TECHNIQUE: Imaging Protocol: Axial computed tomography images with coronal and sagittal reformatted images were created and reviewed COMPARISON: CT CT CHEST LUNG CANCER SCREEN from 03/05/2022 FINDINGS: Tracheobronchial tree: Patent where visualized. Pulmonary parenchyma: No consolidation or dominant measurable mass. No architectural distortion. Lung Nodules: None. Mediastinum and Amelia: No dominant adenopathy or fluid collection. The esophagus is unremarkable. Thyroid gland: Unremarkable. Lymph nodes: Unremarkable. Pleura: No effusion or pneumothorax. Heart: The heart is not dilated. No coronary artery calcifications are seen. No pericardial effusion . Aorta: Thoracic aorta non-dilated. Upper abdomen: Unremarkable. Soft Tissues: Unremarkable. Bones: Within normal limits for the patient's age. IMPRESSION: No pulmonary nodules. Lung RADS Cat 1 - Negative: No nodules and definitely benign nodules Lung-RADS 1.0 CATEGORIES: Category 0 - Prior chest CT exam(s) being located for comparison. Category 1 - Annual screening in 12 months. No nodules or definitely benign nodules. Category 2 - Annual screening in 12 months. Benign appearance. Nodules with low likelihood of becomin g active cancer. Category 3 - 6-month follow-up. Probably benign. Short-term follow-up suggested. Nodules with low lik elihood of becoming active cancer. Category 4A - 3-month follow-up and CT/PET if >8 mm in size. Suspicious finding. Findings which requi re additional testing. Category 4B - Findings which require additional testing and tissue sampling. Suspicious finding. Category 4X - Category 3 or 4 nodules with additional features or imaging findings that increases the suspicion of malignancy. Modifier S- Potentially clinically significant finding. (Non lung cancer) RADIATION DOSE DELIVERED: Total DLP Total DLP DATA REPOSITORY: All CT scans at this facility are submitted to the National Radiology Data Registry (NRDR) Dose Index Registry (DIR) with the [employer] (ACR). RADIATION OPTIMIZATION: All CT scans at this facility use at least one of these dose optimization te chniques: automated exposure control; mA and/or kV adjustment per patient size (includes targeted exa ms where dose is matched to clinical indication); or iterative reconstruction.
== END ==
PROVIDERS: PCP Nurse Practitioner Family; Visit Provider Physician Assistant Surgical
DX: Z87.891 Personal history of nicotine dependence (principal); Z12.2 Encounter for screening for malignant neoplasm of respiratory organs
CPT/HCPCS: 71271

== ENCOUNTER → 2023-08-04 14:40 | Outpatient (BNVA) | payer MEDICARE, SELFPAY | PROVIDERS: PCP Nurse Practitioner Family; Referring Provider Nurse Practitioner Family; Visit Provider Student in an Organized Health Care Education/Training Program | DX: J43.1 Panlobular emphysema (principal); Z87.891 Personal history of nicotine dependence | CPT/HCPCS: 99214 ==

== ENCOUNTER → 2024-01-12 15:06 | Outpatient (BNVA) | payer MEDICARE, SELFPAY | PROVIDERS: PCP Nurse Practitioner Family; Referring Provider Nurse Practitioner Family; Visit Provider Podiatrist | DX: L60.0 Ingrowing nail (principal); M79.671 Pain in right foot; R60.0 Localized edema; R09.89 Other specified symptoms and signs involving the circulatory and respiratory systems; L65.9 Nonscarring hair loss, unspecified; L60.8 Other nail disorders | CPT/HCPCS: 11750; 99204 ==

== ENCOUNTER → 2024-02-03 11:44 | Outpatient (BNVA) | payer MEDICARE, SELFPAY | PROVIDERS: PCP Nurse Practitioner Family; Referring Provider Nurse Practitioner Family; Visit Provider Podiatrist | DX: M79.671 Pain in right foot (principal); L60.0 Ingrowing nail; L84 Corns and callosities; S91.135A Puncture wound without foreign body of left lesser toe(s) without damage to nail, initial encounter; X58.XXXA Exposure to other specified factors, initial encounter | CPT/HCPCS: 99213 ==

== ENCOUNTER → 2024-02-23 10:37 | Outpatient (BNVA) | payer MEDICARE, SELFPAY | PROVIDERS: PCP Nurse Practitioner Family; Referring Provider Nurse Practitioner Family; Visit Provider Physician Assistant Surgical | DX: J44.9 Chronic obstructive pulmonary disease, unspecified (principal); Z87.891 Personal history of nicotine dependence; J43.1 Panlobular emphysema; Z23 Encounter for immunization | CPT/HCPCS: 36415; 90661; 99214; G0008 ==

== ENCOUNTER 2024-02-23 15:31 | Outpatient (REF) | payer MEDICARE, SELFPAY ==
[2024-02-23 15:40] LABS: Abs Immature Grans 0.04 10^3/uL (0.0-0.06); Absolute Eosinophil Count 0.44 10^3/uL (0.0-0.7); Absolute Lymphocyte Count 2.15 10^3/uL (1.2-3.4); Absolute Neutrophil Count 5.71 10^3/uL (1.2-6.7); Basophils % 1.1 %; Eosinophils % 4.8 %; HCT 47.1 % (40.0-50.0); HGB 15.1 g/dL (13.5-17.5); Immature Grans % 0.4 %; Lymphocytes % 23.5 %; MCH 29.9 pg (27.0-33.0); MCHC 32.1 % (32.0-36.0); MCV 93 fL (80-95); MPV 11.8 fL (8.0-11.0); Monocytes % 7.7 %; Neutrophils % 62.5 %; Platelet Count 237 10^3/uL (130-400); RBC 5.05 10^6/uL (4.36-5.78); RDW 13.3 % (11.8-14.1); RDW-SD 45.4 fL; WBC 9.14 10^3/uL (4.4-10.8)
== END 2024-02-23 15:32 | disposition home or self-care (01) ==
LOC: LBN 15:31
PROVIDERS: PCP Nurse Practitioner Family; Visit Provider Physician Assistant Surgical
DX: J44.9 Chronic obstructive pulmonary disease, unspecified (principal); Z23 Encounter for immunization; Z87.891 Personal history of nicotine dependence; J43.1 Panlobular emphysema
CPT/HCPCS: 85025

== ENCOUNTER → 2024-04-05 14:30 | Outpatient (BNVA) | payer MEDICARE, SELFPAY | PROVIDERS: PCP Nurse Practitioner Family; Referring Provider Nurse Practitioner Family; Visit Provider Physician Assistant Surgical | DX: J43.1 Panlobular emphysema (principal); Z87.891 Personal history of nicotine dependence | CPT/HCPCS: 94640; 99214; J7620 ==

== ENCOUNTER 2024-04-19 15:01 | Outpatient (CLI) | payer MEDICARE, SELFPAY ==
[2024-04-19 12:53] LABS: Anion Gap 4.8 mmol/L (3-11); BUN 23 mg/dL (7-18); CO2 33.2 mmol/L (21.0-32.0); CREATININE 1.3 mg/dL (0.70-1.30); Calcium 9.2 mg/dL (8.5-10.1); Calculated LDL 59 mg/dL (<100); Chloride 105 mmol/L (98-107); Cholesterol 127 mg/dL (<200); Glucose 86 mg/dL (74-106); HDL Cholesterol 58 mg/dL (40-60); Potassium 3.9 mmol/L (3.5-5.1); Sodium 143 mmol/L (136-145); Triglyceride 54 mg/dL (<150)
[2024-04-19 13:17] LABS: Hemoglobin A1C 5.5 % (<5.7)
[2024-04-19 20:09] LABS: PSA, Screening 1.3 ng/mL (<=6.5)
== END 2024-04-19 15:02 | disposition home or self-care (01) ==
LOC: LOS 15:03
PROVIDERS: PCP Nurse Practitioner Family; Visit Provider Nurse Practitioner Family
DX: Z13.1 Encounter for screening for diabetes mellitus (principal); Z13.6 Encounter for screening for cardiovascular disorders; Z12.5 Encounter for screening for malignant neoplasm of prostate
CPT/HCPCS: 36415; 80048; 80061; 84153; 83036

== ENCOUNTER 2024-04-25 02:55 | Outpatient (CLI) | payer MEDICARE, SELFPAY ==
--- NOTE | 2024-04-25 13:15 | DI.CTLCSR_ITS ---
Exam(s) CT CHEST LUNG CANCER SCREEN EXAM: CT CHEST LUNG CANCER SCREEN CLINICAL HISTORY: Screening for lung cancer,FORMER SMOKER, Z87.891 TECHNIQUE: Imaging Protocol: Axial computed tomography images with coronal and sagittal reformatted images were created and reviewed. Lung Computer Aided Detection (CAD) was utilized. COMPARISON: CT CT CHEST LUNG CANCER SCREEN from 03/05/[address] CHEST LUNG CANCER SCREEN from 04/09/2023 FINDINGS: Tracheobronchial tree: Patent where visualized. No bronchiectasis. Pulmonary parenchyma: No consolidation or dominant measurable mass. Mild centrilobular emphysematous changes are present. Lung Nodules: None. Mediastinum and Amelia: No dominant adenopathy or fluid collection. The esophagus is unremarkable. Thyroid gland: Unremarkable. Lymph nodes: Unremarkable. Pleura: No effusion or pneumothorax. Heart: The heart is not dilated. No coronary artery calcifications are seen. No pericardial effusion . Aorta: Thoracic aorta non-dilated. Upper abdomen: Unremarkable. Soft Tissues: Unremarkable. Bones: Within normal limits. IMPRESSION: No pulmonary nodules. Lung RADS Cat 1 - Negative: No nodules and definitely benign nodules Lung-RADS 1.0 CATEGORIES: Category 0 - Prior chest CT exam(s) being located for comparison. Category 1 - Annual screening in 12 months. No nodules or definitely benign nodules. Category 2 - Annual screening in 12 months. Benign appearance. Nodules with low likelihood of becomin g active cancer. Category 3 - 6-month follow-up. Probably benign. Short-term follow-up suggested. Nodules with low lik elihood of becoming active cancer. Category 4A - 3-month follow-up and CT/PET if >8 mm in size. Suspicious finding. Findings which requi re additional testing. Category 4B - Findings which require additional testing and tissue sampling. Suspicious finding. Category 4X - Category 3 or 4 nodules with additional features or imaging findings that increases the suspicion of malignancy. Modifier S- Potentially clinically significant finding. (Non lung cancer) RADIATION DOSE DELIVERED: 39.1mGy.cm Total DLP 39.1mGy.cmTotal DLP DATA REPOSITORY: All CT scans at this facility are submitted to the National Radiology Data Registry (NRDR) Dose Index Registry (DIR) with the [employer] (ACR). RADIATION OPTIMIZATION: All CT scans at this facility use at least one of these dose optimization te chniques: automated exposure control; mA and/or kV adjustment per patient size (includes targeted exa ms where dose is matched to clinical indication); or iterative reconstruction.
== END 2024-04-25 03:15 ==
LOC: DI 02:55
PROVIDERS: PCP Nurse Practitioner Family; Visit Provider Physician Assistant Surgical
DX: Z87.891 Personal history of nicotine dependence (principal); Z12.2 Encounter for screening for malignant neoplasm of respiratory organs
CPT/HCPCS: 71271

== ENCOUNTER → 2024-09-27 14:14 | Outpatient (BNVA) | payer MEDICARE, SELFPAY | PROVIDERS: PCP Nurse Practitioner Family; Referring Provider Nurse Practitioner Family; Visit Provider Physician Assistant Surgical | DX: J43.1 Panlobular emphysema (principal); Z87.891 Personal history of nicotine dependence | CPT/HCPCS: 99214 ==

== ENCOUNTER 2025-01-04 09:01 | Emergency (ER) | payer MEDICARE, SELFPAY ==
[2025-01-04] VITALS (37 sets, daily range): BP systolic 124–163; BP diastolic 63–87; PULSE 47–72; RESP 9–22; TEMP 36.6; O2SAT 94–100
--- NOTE | 2025-01-04 09:00 | RT.EKG_ITS ---
APPROVED REPORT Exam: Resting ECG Reason for Exam: Dizziness Patient Location: E HR:65 bpm ECG Measurements Heart Rate 65 AXIS CO 206 P 63 QRSd 95 QRS 28 QT 432 T 33 QTc 448 Conclusion Sinus rhythm...normal P axis, V-rate 60- 99 I have reviewed and interpreted ECG and agree with software generated interpretation.
[2025-01-04 09:30] LABS: Abs Immature Grans 0.03 10^3/uL (0.0-0.06); HCT 46.6 % (40.0-50.0); HGB 15.4 g/dL (13.5-17.5); Immature Grans % 0.3 %; MCH 29.4 pg (27.0-33.0); MCHC 33.0 % (32.0-36.0); MCV 89 fL (80-95); MPV 11.3 fL (8.0-11.0); Platelet Count 228 10^3/uL (130-400); RBC 5.23 10^6/uL (4.36-5.78); RDW 13.2 % (11.8-14.1); RDW-SD 43.5 fL; WBC 9.72 10^3/uL (4.4-10.8)
[2025-01-04] MEDS: Normal Saline 500 ML IV ×2 (09:30→12:00)
[2025-01-04] MEDS: Prochlorperazine 10 MG/2 ML VIAL 5 MG IVP ×2 (09:30→15:35)
[2025-01-04] MEDS: diphenhydrAMINE 50 MG/ML VIAL 12.5 MG IVP (09:30)
[2025-01-04 10:21] LABS: ALT 34 U/L (16-63); AST 24 U/L (15-37); Albumin 3.9 g/dL (3.4-5.0); Alkaline Phosphatase 90 U/L (46-116); Anion Gap 7.9 mmol/L (3-11); BUN 17 mg/dL (7-18); Bilirubin, Total 0.6 mg/dL (0.2-1.0); CO2 31.1 mmol/L (21.0-32.0); Calcium 9.3 mg/dL (8.5-10.1); Chloride 103 mmol/L (98-107); Estimated GFR 71.77 (mL/min/1.73m2); Glucose 118 mg/dL (74-106); Magnesium 2.1 mg/dL (1.8-2.4); Potassium 4.0 mmol/L (3.5-5.1); Sodium 142 mmol/L (136-145); TSH (W/Ref FT4) 3.22 uIU/mL (0.36-3.74); Total Protein 7.4 g/dL (6.4-8.2)
[2025-01-04 10:27] LABS: Troponin I 6 ng/L (<or=76)
--- NOTE | 2025-01-04 10:30 | DI.CT_ITS ---
Exam(s) CT BRAIN NECK CTA EXAM: CT BRAIN NECK CTA CLINICAL HISTORY: dizziness. TECHNIQUE: Imaging Protocol: Axial CT angiography was performed with multi- slice acquisition and multi-planar and/or 3D reconstructions. CONTRAST MATERIAL: Intravenous: Omnipaque 350 Contrast volume:70 mL COMPARISON: Prior brain imaging studies reviewed FINDINGS: CTA Neck W: Aortic arch anatomy: The aortic arch anatomy is conventional and there is no significant stenosis at the origin of the great vessels off of the aortic arch. No intimal flap evident. Anterior circulation: Both common carotid arteries ascend with normal luminal diameters. Is no significant plaque nor stenosis at the level the carotid bulbs and proximal internal carotid arteries on both sides the neck. The internal carotid arteries are patent in the upper neck and skull base-carotid canals. Posterior circulation: Both vertebral arteries originate in conventional fashion off of the subclavian arteries and there is no obvious stenosis at the origin of the vertebral arteries. Both vertebral arteries exhibit normal luminal diameters within the foramen transversarium. No evidence of thrombosis nor dissection. Both vertebral arteries contribute to the formation of the basilar artery at the skull base. CTA Brain W: Anterior circulation: Both internal carotid arteries are patent in the skull base-carotid canals as well as within the cavernous sinuses. The supraclinoid aspects of the ICAs are patent. Both A1 segments are patent as are the anterior cerebral arteries and there is no evidence of aneurysm at the level of the anterior communicating artery. Both middle cerebral arteries are patent with no evidence of significant stenosis nor intraluminal thrombus. There also no aneurysms of these vessels. Posterior circulation: The basilar artery ascends in the midline. Distally it gives off patent bilateral superior cerebellar arteries. Above this level the basilar artery terminates as patent bilateral posterior cerebral arteries. There is no evidence of aneurysm at the tip of the basilar artery nor elsewhere in the [id number]. CT BRAIN: There is no evidence of intracranial hemorrhage, mass effect, or shift of midline structures. There are no extra-axial fluid collections. Ventricles are not enlarged or shifted. There are no ring enhancing lesions in the brain and no abnormal meningeal enhancement. IMPRESSION: 1. Patent carotid arteries in the neck. No hemodynamically significant stenosis. No dissection 2. Patent vertebral arteries. No stenosis nor dissection. 3. Patent intracranial arteries. No stenosis nor occlusion nor dissection. 4. No ring enhancing lesions in the brain. No abnormal meningeal enhancement. No hemorrhage. Called by myself to ER provider 01/04/2025 at 12:11 p.m. RADIATION DOSE DELIVERED: 2,545.48mGy.cm Total DLP DATA REPOSITORY: All CT scans at this facility are submitted to the National Radiology Data Registry (NRDR) Dose Index Registry (DIR) with the [employer] (ACR). RADIATION OPTIMIZATION: All CT scans at this facility use at least one of these dose optimization techniques: automated exposure control; mA and/or kV adjustment per patient size (includes targeted exams where dose is matched to clinical indication); or iterative reconstruction.
--- NOTE | 2025-01-04 10:30 | DI.MRI_ITS ---
Exam(s) MR BRAIN WO EXAM: MR BRAIN WO CLINICAL HISTORY: dizziness TECHNIQUE: Multiplanar multisequence MRI of the brain was performed. COMPARISON: No exams were available for comparison FINDINGS: CEREBRAL PARENCHYMA: There is no evidence of intracranial hemorrhage, mass effect, or shift of midline structures. There are no extra-axial fluid collections. Ventricles are not enlarged or shifted. There is no significant focal signal abnormality in the cerebellar hemispheres nor within the aramis, midbrain, and thalami. There is no abnormal signal abnormality in the periventricular white matter. There is no significant focal signal abnormality evident on diffusion imaging to suggest acute ischemic event. PITUITARY GLAND: No mass nor parasellar abnormality. No obvious abnormality in the cavernous sinuses. FLOW VOIDS: The expected flow void are noted. No evidence of obvious aneurysm nor obvious vascular malformation. PARANASAL SINUSES: There is mucosal thickening both maxillary sinuses. ORBITS: No obvious findings. IMPRESSION: No significant acute intracranial findings on this noninfused MRI scan of the brain. Mucosal thickening noted in both maxillary sinuses as well as in the sphenoid sinuses but without fluid levels. Report called by myself to the ER provider 12/25/2024 at 11:44 a.m. DATA REPOSITORY:
[2025-01-04 11:13] LABS: Troponin I 6 ng/L (<or=76)
[2025-01-04] MEDS: Normal Saline - Diluent 50 ML VIAL IJ (11:58)
[2025-01-04] MEDS: Omnipaque 350 MG/ML 100 ML BTL IJ (11:58)
[2025-01-04] MEDS: Normal Saline Flush 10 ML SYR IVP (11:59)
--- NOTE | 2025-01-04 15:05 | PT.INIE ---
PT Notes Visit Reasons: Dizziness Physical Therapy Day Surgery Initial Evaluation Date: 01/04/2025 Referring Doctor: Rocio BURKETT PT Orders: PT CONSULT: Fall Safety Assessment Precautions: Standard, Patient Profile/Admitting Diagnosis: This 69-year-old male presents with report of dizziness that started 24 hours prior to arrival. He states he has had similar symptoms in the form but never lasted longer than 24 hours. He states that movement of his head makes his symptoms worse. He describes feeling off balance. He has been having trouble ambulating around his house had trouble getting out to the car today which is why they presented Imaging CTA and head MRI negative for acute findings. PT consult placed PMHX: Benign paroxysmal positional vertigo (Acute) Corns and callosities (Acute) Venous insufficiency (Acute) Pain in right foot (Acute) Ingrown toenail (Acute) Cold feet (Acute) History of excessive cerumen (Acute) Palmar fascial fibromatosis (Acute) Dyspnea (Acute) GERD (gastroesophageal reflux disease) (Chronic) Obesity (Chronic) COPD (chronic obstructive pulmonary disease) (Chronic) 02/2021, moderate per PFT, followed by PulmonaryPersonal history of nicotine dependence (Acute) quit 2018, 30 pk yr hxDeep vein thrombosis (DVT) of femoral vein of left lower extremity (Acute) 01/2021-left leg, extensive, 2 months following surgery, plan 6-month course of Eliquis 06/2021-patient has completed 6 months of EliquisMigraine (Acute) on propranolol prophylaxixConductive hearing loss, external ear (Acute 11/23/14) Chronic sinusitis (Acute 11/24/13) Allergic rhinitis (Acute 11/29/15) Medical History Otitis externa Impacted cerumen of both ears Nasal polyp Surgical History H/O endoscopic sinus surgery Bilateral total ethmoidectomy, bilateral maxillary antrostomy, bilateral polypectomy, 2011History of bilateral total hip arthroplasty (11/06/20) Status post colonoscopy History of nasal polyp (11/29/15) Social History/Home Situation: Pt resides with his in a 2 story home with ramp to enter. He has a flight of stairs with 2 rails to get to his bedroom. He is independent without AD for ambulation. Independent ADLs Equipment Owned/DME: none at home RN Issued FWW Subjective: Pt reports he is less nauseous since he got the compazine. He states he will be staying on the first floor of his home. he has a ramp to enter. Pt reports he has had BPPV in the past and has done the Laura at home. He states it was so bad that he didn't even think to try doing the Eply. Objective: [] General Observation: Male presented semireclined on stretcher with eyes closed, his visiting. Telemetry in place Mental Status: A+Ox 4 , cooperative able to follow instructions, agreeable to participate in Assessment Pain: denies ROM: [] BUE: WNL BLE: WNL Strength: [] BUE:grossly 5/5 BLE: grossly 5/5 Sensation: intact (+) horizontal Nystagmus to left resolved after Alura to Left with hold of 30 sec. in all positions. Bed Mobility/Transfers: [] Supine to sit supervision Sit to stand Supervision Stand to sit independent Bed to chair Supervision Gait: amb with FWW 50 feet including 180 and 90 degree turns with no increase in symptoms. Pt able to manage FWW . reduced step length. Pt able to rotate head without onset of nausea or vertigo Balance: [] Static Sitting: Normal Dynamic Sitting: Good minus Static Standing: Fair plus Dynamic Standing: Fair Special Tests: [] Mobility Limitations Standardized Measure [] [facility] AM-PAC 6 clicks Basic Mobility Inpatient Short Form: [] Raw Score: 22 CMS Score: 20.91% Treatment Informed Consent/Education: Patient instructed in purpose of PT consult. Packet containing Laura Maneuver has been given to patient. Education and training on the maneuver that can be done at home has been completed with patient and his Amb with FWW for safe mobility within home to provide stability if symptoms return prior to Vestibular Rehab Assessment: Pt. presents with left horizontal nystagmus , nausea and impaired functional mobility. Patient presents with clinical signs and symptoms consistent with current/admitting diagnoses that have resulted to mobility limitations, gait instability, generalized weakness, and impairment of motor control as demonstrated by the following impairment level findings: 1. positional dizziness 2. Impaired standing balance 3. Impaired functional activity tolerance 4. Left horizontal nystagmus Impairments are contributing to the following functional limitations: 1. Inability to safely ambulate without assistive device 2. Increase completion time for mobility ADL performance 3. Increased fall risk 4. Difficulty performing stairs Patient is assessed as a moderate complexity based on the following: History: 69-year-old male with impairment level findings, functional limitations, and past medical history as indicated above Examination: Demonstrable impairment in strength, balance, and mobility level with underlying impairments and functional limitations as documented above Presentation:evolving Decision Making: moderate Goals: N/A. Plan of Care/Treatment Plan: N/A. DISCHARGE RECOMMENDATIONS:Home with Outpatient PT for Vestibular Rehab TREATMENT CODE/TIME: 34339, [id number]/ [id number] Thank you for the opportunity to participate in the care of this patient. Chrystal Jimenez, PT [facility]
--- NOTE | 2025-01-04 15:22 | W.ED.GENAD ---
Discharge Plan Disposition Patient Disposition: Home Condition: Stable Discharge Details Clinical Impression: Benign paroxysmal positional vertigo Primary Care Provider: Mark Adams ED Provider: Rocio Platt Home Meds and New Rx's Prescriptions: New prochlorperazine maleate [Compazine] 10 mg tablet 10 mg PO Q6H PRNQty: 10 0RF Continued cholecalciferol (vitamin D3) 50 mcg (2,000 unit) capsule 50 mcg PO DAILY cetirizine [Allergy Relief (cetirizine)] 10 mg tablet 10 mg PO DAILY PRN albuterol sulfate [Ventolin HFA] 90 mcg/actuation HFA aerosol inhaler 2 puff inhalation Q6H PRN (Reason: shortness of breath or wheezing) Qty: 8.5 12RF ipratropium-albuterol 0.5 mg-3 mg(2.5 mg base)/3 mL solution for nebulization 3 ml inhalation Q4H PRN (Reason: wheezing) Qty: 180 5RF propranolol 120 mg capsule,extended release 24hr 120 mg PO DAILY Qty: 90 4RF montelukast 10 mg tablet 10 mg PO DAILY Qty: 90 4RF Breztri Aerosphere 160-9-4.8 mcg/actuation HFA aerosol inhaler 2 inh inhalation BID Qty: 10.7 12RF omeprazole 40 mg capsule,delayed release(DR/EC) 40 mg PO DAILY Qty: 90 3RF mupirocin 2 % ointment 1 applic topical TID PRN acetaminophen 500 mg tablet 500 mg PO Q6H PRN (Reason: pain) Qty: 60 2RF Discharge Instructions Instructions: Vestibular Exercises, Vertigo ED Additional Instructions: Take the Compazine as needed for dizziness nausea Follow-up with PT, I placed a referral to [facility] [place] Use the walker with ambulation if you Feel comfortable you may perform the Laura maneuver at home Please return earlier should you have new or worsening complaints Stand Alone Forms: Physical Therapy Referral Referrals: Mark Adams NP [Primary Care Provider, Medicine] [facility] General Date/Time Provider Initiated Documentation: 01/04/25 09:08. HPI Narrative: This 69-year-old male presents with report of dizziness that started 24 hours prior to arrival. He states he has had similar symptoms in the form but never lasted longer than 24 hours. He states that movement of his head makes his symptoms worse. He describes feeling off balance. He has been having trouble ambulating around his house had trouble getting out to the car today which is why they presented. Patient has not attempted any [id number] medications. He denies any fever or chills he denies any head injuries or recent neck manipulations. He denies any speech or sensation changes. Patient denies any current headache. He states he feels generally weak as he is had nausea and several episodes of vomiting. He denies any blood in vomitus or diarrhea. Denies known sick contacts fever or stiff neck. Related Data Home Medications ?Medication ?Instructions ?Recorded ?Confirmed mupirocin 2 % topical ointment 1 applic topical TID PRN 04/17/22 09/29/24 acetaminophen 500 mg tablet 500 mg PO Q6H PRN pain #60 tabs 04/18/22 01/04/25 cetirizine 10 mg tablet (Allergy 10 mg PO DAILY PRN 03/30/23 01/04/25 Relief (cetirizine)) cholecalciferol (vitamin D3) 50 50 mcg PO DAILY 03/30/23 01/04/25 mcg (2,000 unit) capsule albuterol sulfate 90 mcg/actuation 2 puff inhalation Q6H PRN 07/16/23 01/04/25 aerosol inhaler (Ventolin HFA) shortness of breath or wheezing #8.5 grams ipratropium 0.5 mg-albuterol 3 mg 3 ml inhalation Q4H PRN wheezing 08/10/23 01/04/25 (2.5 mg base)/3 mL nebulization #180 mL soln montelukast 10 mg tablet 10 mg PO DAILY #90 tab-caps 11/16/23 01/04/25 propranolol 120 mg capsule,24 120 mg PO DAILY #90 tab-caps 11/16/23 01/04/25 hr,extended release budesonide 160 mcg-glycopyr 9 2 inh inhalation BID #10.7 grams 04/25/24 01/04/25 mcg-formot 4.8 mcg/actuation HFA inhaler (Breztri Aerosphere) omeprazole 40 mg capsule,delayed 40 mg PO DAILY #90 tab-caps 10/24/24 01/04/25 release prochlorperazine maleate 10 mg 10 mg PO Q6H PRN #10 tabs 01/04/25 tablet (Compazine) Previous Rx's ?Medication ?Instructions ?Recorded acetaminophen 500 mg tablet 500 mg PO Q6H PRN pain #60 tabs 04/18/22 albuterol sulfate 90 mcg/actuation 2 puff inhalation Q6H PRN 07/16/23 aerosol inhaler (Ventolin HFA) shortness of breath or wheezing #8.5 grams ipratropium 0.5 mg-albuterol 3 mg 3 ml inhalation Q4H PRN wheezing 08/10/23 (2.5 mg base)/3 mL nebulization #180 mL soln montelukast 10 mg tablet 10 mg PO DAILY #90 tab-caps 11/16/23 propranolol 120 mg capsule,24 120 mg PO DAILY #90 tab-caps 11/16/23 hr,extended release budesonide 160 mcg-glycopyr 9 2 inh inhalation BID #10.7 grams 04/25/24 mcg-formot 4.8 mcg/actuation HFA inhaler (Breztri Aerosphere) omeprazole 40 mg capsule,delayed 40 mg PO DAILY #90 tab-caps 10/24/24 release prochlorperazine maleate 10 mg 10 mg PO Q6H PRN #10 tabs 01/04/25 tablet (Compazine) Allergies Allergy/AdvReac Type Severity Reaction Status Date / Time aspirin Allergy Intermediate Anaphylaxis Verified 01/04/25 09:34 prednisone AdvReac Intermediate Headache Verified 01/04/25 09:34 General Stated Complaint: Dizzy/Sync KORI: 2 Exam Narrative Exam Narrative: Alert and oriented 69-year-old male appears uncomfortable, left beating nystagmus extraocular muscles otherwise intact lungs clear to auscultation cardiac rate rhythm regular no abdominal tenderness alert and oriented x 4 cranial nerves II to XII intact negative [id number]-stakzg negative heel-maurice, negative pronator drift distal pulses intact all 4 extremities Course Vital Signs Vital signs: Vital Signs Pulse 57 L 01/04/25 09:20 Respiratory Rate 19 01/04/25 09:20 Pulse Oximetry 96 01/04/25 09:20 Temperature 36.6 C 01/04/25 09:22 Temperature Source Oral 01/04/25 09:22 Pulse 50 L 01/04/25 13:15 Pulse 50 L 01/04/25 13:15 Respiratory Rate 14 01/04/25 13:15 Respiratory Effort Normal, Non-Labored 01/04/25 10:43 Blood Pressure 147/75 H 01/04/25 13:15 Blood Pressure Mean 101 01/04/25 13:15 Blood Pressure Position Supine 01/04/25 09:22 Pulse Oximetry 98 01/04/25 13:15 Oxygen Delivery Method Room Air 01/04/25 09:22 Oxygen Flow Rate 0 01/04/25 09:22 Lab/Test Results Lab/Test Results: Laboratory Tests Range/Units 01/04/25 01/04/25 01/04/25 09:09 09:17 09:17 WBC (4.4-10.8) 10^3/uL 9.72 RBC (4.36-5.78) 10^6/uL 5.23 Hgb (13.5-17.5) g/dL 15.4 Hct (40.0-50.0) % 46.6 MCV (80-95) fL 89 MCH (27.0-33.0) pg 29.4 MCHC (32.0-36.0) % 33.0 RDW (11.8-14.1) % 13.2 Plt Count (130-400) 10^3/uL 228 MPV (8.0-11.0) fL 11.3 H Immature Gran % % 0.3 Neutrophils % % 75.8 Lymphocytes % % 14.9 Monocytes % % 6.0 Eosinophils % % 2.3 Basophils % % 0.7 Nucleated RBC % (0.0-0.3) % 0.0 Absolute Neutrophils (1.2-6.7) 10^3/uL 7.37 H Absolute Lymphocytes (1.2-3.4) 10^3/uL 1.45 Absolute Monocytes (0.1-0.8) 10^3/uL 0.58 Absolute Eosinophils (0.0-0.7) 10^3/uL 0.22 Absolute Basophils (0.0-0.2) 10^3/uL 0.07 Sodium (136-145) mmol/L 142 Potassium (3.5-5.1) mmol/L 4.0 Chloride (98-107) mmol/L 103 Carbon Dioxide (21.0-32.0) mmol/L 31.1 Anion Gap (3-11) mmol/L 7.9 BUN (7-18) mg/dL 17 Creatinine (0.70-1.30) mg/dL 1.1 Est GFR (CKD-EPI 2020) (mL/min/1.73m2) 71.77 Glucose (74-106) mg/dL 118 H Calcium (8.5-10.1) mg/dL 9.3 Magnesium Cancelled 2.1 Total Bilirubin (0.2-1.0) mg/dL 0.6 AST (15-37) U/L 24 ALT (16-63) U/L 34 Alkaline Phosphatase (46-116) U/L 90 Troponin I (<or=76) ng/L 6 Total Protein (6.4-8.2) g/dL 7.4 Albumin (3.4-5.0) g/dL 3.9 TSH Cancelled Range/Units 01/04/25 01/04/25 09:17 10:28 WBC (4.4-10.8) 10^3/uL RBC (4.36-5.78) 10^6/uL Hgb (13.5-17.5) g/dL Hct (40.0-50.0) % MCV (80-95) fL MCH (27.0-33.0) pg MCHC (32.0-36.0) % RDW (11.8-14.1) % Plt Count (130-400) 10^3/uL MPV (8.0-11.0) fL Immature Gran % % Neutrophils % % Lymphocytes % % Monocytes % % Eosinophils % % Basophils % % Nucleated RBC % (0.0-0.3) % Absolute Neutrophils (1.2-6.7) 10^3/uL Absolute Lymphocytes (1.2-3.4) 10^3/uL Absolute Monocytes (0.1-0.8) 10^3/uL Absolute Eosinophils (0.0-0.7) 10^3/uL Absolute Basophils (0.0-0.2) 10^3/uL Sodium (136-145) mmol/L Potassium (3.5-5.1) mmol/L Chloride (98-107) mmol/L Carbon Dioxide (21.0-32.0) mmol/L Anion Gap (3-11) mmol/L BUN (7-18) mg/dL Creatinine (0.70-1.30) mg/dL Est GFR (CKD-EPI 2020) (mL/min/1.73m2) Glucose (74-106) mg/dL Calcium (8.5-10.1) mg/dL Magnesium Total Bilirubin (0.2-1.0) mg/dL AST (15-37) U/L ALT (16-63) U/L Alkaline Phosphatase (46-116) U/L Troponin I (<or=76) ng/L 6 Total Protein (6.4-8.2) g/dL Albumin (3.4-5.0) g/dL TSH 3.22 Medical Decision Making Results: MRI brain without acute abnormality I personally discussed both the CTA of patient's head and neck and MRI with the radiologist, Dr. Draper, CBC, CMP, labs and electrolytes within normal limits Assessment and plan: Patient had a positive hints exam for nystagmus which is reassuring, I suspect that this is a peripheral process. Given that patient is unable to participate with Laura and is generally weak I did order an MRI and a CTA. Patient was given Compazine and Benadryl looks like there is some sort of cross-reactivity between aspirin and meclizine so this was not administered patient was feeling improvement however I did order FOBT be performed by PT and patient feels marked improvement after Laura procedure. He is requesting discharge home he is ambulatory with steady gait with walker he will take Compazine and [place] [facility], I placed a referral. Return precautions reviewed and patient expressed understanding amatory to steady gait at time of reassessment. Troponin is flat at 6 which is reassuring. I did consider CVA, BPPV, cardiac equivalent for coronary artery disease, however exam and diagnostics are inconsistent with these processes PFSH All Active Problems (Updated 01/04/25 @ 15:09 by KWADWO Foley) Benign paroxysmal positional vertigo (Acute) Corns and callosities (Acute) Venous insufficiency (Acute) Pain in right foot (Acute) Ingrown toenail (Acute) Cold feet (Acute) History of excessive cerumen (Acute) Palmar fascial fibromatosis (Acute) Dyspnea (Acute) GERD (gastroesophageal reflux disease) (Chronic) Obesity (Chronic) COPD (chronic obstructive pulmonary disease) (Chronic) 02/2021, moderate per PFT, followed by Pulmonary Personal history of nicotine dependence (Acute) quit 2019, 30 pk yr hx Deep vein thrombosis (DVT) of femoral vein of left lower extremity (Acute) 01/2021-left leg, extensive, 2 months following surgery, plan 6-month course of Eliquis 06/2021-patient has completed 6 months of Eliquis Migraine (Acute) on propranolol prophylaxix Conductive hearing loss, external ear (Acute 11/23/14) Chronic sinusitis (Acute 11/24/13) Allergic rhinitis (Acute 11/29/15) Medical History Otitis externa Impacted cerumen of both ears Nasal polyp Surgical History H/O endoscopic sinus surgery Bilateral total ethmoidectomy, bilateral maxillary antrostomy, bilateral polypectomy, 2010 History of bilateral total hip arthroplasty (11/06/20) Status post colonoscopy History of nasal polyp (11/29/15) Family History Mother Skin cancer Father Skin cancer Sister Cancer Brother No problems noted. Brother No problems noted. Social History Smoking/Tobacco Use Status: Former Tobacco Use tobacco type: cigarettes Quit Date: 04/20/18 Tobacco: How many years used: 30 Second Hand Exposure: Yes Smoking risk assessment performed?: Yes Alcohol Intake: current Alcohol Intake frequency: 0-2 drinks per day Alcohol type: beer Drug use: Occasionally Substance use type: marijuana Counseling given: No Adopted: No Household members: spouse Housing: house Number of Children: 0 number of grandchildren: 2 Pets and animals: Yes Pets and animals: cat(s) Sexually active: Yes Do you think of yourself as: straight/heterosexual Current gender identity: male What is your relationship status?: How often do you talk on the phone with friends or family?: decline to answer How often do you get together with friends or relatives?: once per week How often do you attend islam or protestant services?: decline to answer Panel score (0-1 are the most socially isolated patients): 1 What type of physical activity do you participate in: none Special beck needs: No Seatbelt use: always Drive intox or ride w/intox skidder driver: No Working smoke detector in home: Yes Carbon monox detector in home: Yes Firearms in home: No Do you feel safe at home: Yes Do you feel safe in your relationship?: Yes Victim of physical abuse: No Victim of emotional abuse: No Victim of sexual abuse: No
== END 2025-01-04 16:05 | disposition home or self-care (01) ==
PROVIDERS: Emergency Provider Physician Assistant; PCP Nurse Practitioner Family
DX: H81.10 Benign paroxysmal vertigo, unspecified ear (principal); Z87.891 Personal history of nicotine dependence
CPT/HCPCS: 36415; 70496; 70498; 80053; 82962; 93005; 96361; 96374; 96375; 97162; 97530; 99285; 70551; 83735; 84443; 84484; 85025; 93010; J0780; J1200; J3490